=== PATIENT | female | born 1955 | race Caucasian/White ===

== ENCOUNTER 2020-04-15 09:21 | Inpatient (IN) ==
--- OUTSIDE RECORDS SUMMARY | 2020-04-15 09:24 | External Medical Summary | Continuity of Care Document ---
:1955 Author Name Vinicius Seay Address Unavailable Unavailable , Care Team Providers Name Role Phone Marlee Seay Unavailable [email or web address], [email or web address] Unavailable Unavailable Problems Active medical history not documented Allergies and Adverse Reactions Allergy history not documented Medications Medications not documented Procedures Procedures not documented Immunizations Immunizations not documented Plan of Treatment Planned Observations Planned Goals not documented Results No Known Results Results not documented
--- OUTSIDE RECORDS SUMMARY | 2020-04-15 09:24 | External Medical Summary | Continuity of Care Document ---
:1955 Author Name Vinicius Seay Address Unavailable Unavailable , Care Team Providers Name Role Phone Marlee Seay Unavailable [email or web address] [email or web address], UNKNOWN Unavailable Unavailable Problems Active medical history not documented Allergies and Adverse Reactions Allergy history not documented Medications Medications not documented Procedures Procedures not documented Immunizations Immunizations not documented Plan of Treatment Planned Observations Planned Goals not documented Results No Known Results Results not documented
[2020-04-15] MEDS ORDERED: MoRPHine SULFATE 4 MG/ML 1 ML CARP\\VIAL IV STA (09:45)
[2020-04-15] MEDS ORDERED: ONDANSETRON INJ 2 MG/ML 2 ML VIAL IV STA (09:45)
[2020-04-15] MEDS ORDERED: SODIUM CHLORIDE 0.9% 1000ML 1,000 ML IV ONE (09:45)
--- NOTE | 2020-04-15 09:50 | Emergency Department Note ---
Impression & Plan Acute appendicitis ED Provider Note CHIEF COMPLAINT: Abdominal pain, nausea and vomiting HISTORY OF PRESENTING ILLNESS: This is a 64-year-old female who presents to the emergency department by private vehicle with complaint of right lower abdominal pain. Patient states that she initially had abdominal pain about 6 days ago that lasted for 2 days, it was not this severe and it did seem to resolve. She did not have any other symptoms with the abdominal pain at that time. She states the pain was mostly in her upper abdomen initially, then seemed to move to her right lower abdomen. She states that her abdominal pain came back yesterday, it is in the right lower abdomen and is severe, crampy in nature, does not radiate, worse with any movement or being bumped, better with rest, and she currently rates the pain 8/10. She took Tylenol and ibuprofen yesterday, which did not seem to relieve any of her symptoms. She started having nausea and vomiting yesterday afternoon and has not been able to keep anything down since then. She has not had anything to eat or drink today. She denies any fevers or chills, chest pain, shortness of breath, back pain, dizziness or syncope. She denies any diarrhea, constipation, bloody or black stools, urinary complaints, or an unusual rash. Denies any sick contacts. REVIEW OF SYSTEMS: A complete 10 point review of systems was reviewed with the patient with pertinent positives and negatives as per history of present illness. All else were negative. PAST MEDICAL HISTORY: Asthma, hypothyroidism SOCIAL HISTORY: Lives at home, she is a former smoker ALLERGIES: No known allergies PHYSICAL EXAM: CONSTITUTIONAL: Pleasant and cooperative. Nontoxic-appearing and in no acute distress, but appears uncomfortable from pain. Dehydrated well appearing and well nourished. HEENT: Normocephalic, atraumatic. Pharynx normal. Tacky mucous membranes. NECK: Supple, full active range of motion without discomfort. RESPIRATORY: Clear to auscultation bilaterally with no wheezing, crackles, rhonchi or stridor. Equal expansion bilaterally. CARDIOVASCULAR: Tachycardic, regular rhythm with no murmurs, rubs or gallops. Normal peripheral perfusion, 2+ distal pulses in all 4 extremities. No pitting edema. GASTROINTESTINAL: Exquisitely tender in the right lower quadrant, positive rebound tenderness and positive guarding. Positive Rovsing and psoas signs. Tenderness extending up towards the right upper quadrant. The remainder of the abdomen is nontender, soft, and mildly distended. No palpable masses or HSM. Bowel sounds present in all quadrants. No CVA tenderness bilaterally. MUSCULOSKELETAL: Full range of motion of all joints without discomfort. INTEGUMENTARY: No rash or other significant dermatologic conditions noted. NEUROLOGIC: Alert and oriented X 4 with normal affect. Normal strength and sensation in all 4 extremities. Normal speech. Normal gait observed. ED COURSE AND MEDICAL DECISION MAKING: CC: Patient presenting with complaint of abdominal pain, nausea and vomiting DIFFERENTIAL DIAGNOSIS: Includes, but not limited to appendicitis, mesenteric adenitis, infectious colitis, gastroenteritis, diverticulitis, small bowel obstruction, cholecystitis, pancreatitis, abnormality, dehydration, among others. INTERPRETATION OF LABS: Leukocytosis with left shift, no anemia, normal platelets, no significant electrolyte abnormalities, normal renal function, normal liver enzymes and lipase. Lactate within normal limits. IMAGING: CT abd pelvis IV con only CT DOSE: 307.94 mGy.cm HISTORY: Pain. Nausea. RLQ pain, n/v TECHNIQUE: Multiaxial CT images of the abdomen and pelvis were performed following the use of intravenous contrast. A dose lowering technique was utilized adhering to the principles of ALARA. COMPARISON STUDY: None. FINDINGS: Findings consistent with acute appendicitis. The appendix is distended at 1 cm. There is considerable periappendiceal infiltrative change. There is a potential phlegmon or developing between the appendix as well as cecum/ascending colon measuring 4 x 5 cm. There is trace amount of free fluid within the right paracolic gutter as well as right central soft tissue pelvic cul-de-sac regions. Bladder is midline. There is no evidence for free air or obstructive change. Airforming components of the abdomen and pelvis are unremarkable. IMPRESSION: 1. Acute appendicitis.. 2. Considerable periappendiceal infiltrative change with a probable developing high density phlegmon measuring 4 x 5 cm. 3. A well-defined drainable abscess is not identified. MEDICATION RECONCILIATION: I attest that I have personally reviewed the patient's current medication list. INITIAL VITAL SIGNS REVIEW: I reviewed the patient's initial vital signs and interpret them as follows: T: Afebrile; BP: Hypertensive; HR: Tachycardic; RR: Within normal limits; Pulse Ox: Within normal limits on room air. Blood pressure screening: The patient was found to have an elevated blood pr essure, which was felt to be situational. MDM SUMMARY: Patient was evaluated at bedside, history and physical exam performed. Patient is alert and oriented, no acute distress, but appears uncomfortable from pain, resting in the stretcher. She is exquisitely tender in the right lower quadrant with positive rebound tenderness and guarding over the right lower quadrant. No acute abdomen. Clin ically appears consistent with appendicitis. Cardiac monitoring: An order was placed for continuous cardiac monitoring. The monitor shows a rate of 106 bpm with sinus tachycardia rhythm. Orders were placed at bedside for labs, [id number] BMP, lactate, IV fluid bolus for hydration, IV morphine for pain, IV Zofran for nausea, CT abdomen/pelvis with IV contrast to evaluate for abdominal pain. Patient discussed with Dr. Greenwood, who agrees with my assessment, plan, and disposition. Labs and imaging reviewed as above, notable for a leukocytosis. Lactate is within normal limits. CT findings consistent with acute appendicitis with considerable periappendiceal infiltrative change and probable developing phlegmon, but no identified drainable abscess. Given these findings along with a leukocytosis, I did opt to cover the patient with Zosyn. Spoke on the phone with Yumiko Arias PA-C with general surgery, who agrees to evaluate the patient for surgery. Patient reassessed multiple times throughout ED stay, she has remained hemodynamically stable and reports her pain is improved after the morphine. She was updated on all results and plan for surgery, all questions were answered to the best my ability at this time, she was comfortable with this plan. Dr. Becerra at the bedside to evaluate the patient for surgery. Patient was stable at time of admission for surgery. The chart was completed utilizing [employer] Speech voice recognition software. Grammatical errors, random word insertions, pronoun errors, and incomplete sentences are an occasional consequence of this system due to software limitations, ambient noise, and hardware issues. Any formal questions or concerns about the content, text, or information contained within the body of this dictation should be directly addressed to the nurse practitioner for clarification. Past Med/Surg History Medical History (Updated 04/15/20 @ 16:55 by MARV Lyons) Asthma (Chronic) COPD (chronic obstructive pulmonary disease) Hypothyroidism Surgical History (Updated 06/19/20 @ 11:37 by Regino Becerra MD) H/O section X 3 Social History (Updated 04/15/20 @ 11:38 by Regino Becerra MD) Preferred Language: Lebanese Feels Safe at Home: Yes Smoking Status: Former smoker Hx Alcohol Use: Yes (but not for the last 4 years) Allergies Allergies Allergy/AdvReac Type Severity Reaction Status Date / Time No Known Allergies Allergy Mild NONE Unverified 04/15/20 10:39 Home Meds Home Medications Medication Instructions Recorded Confirmed albuterol sulfate [Ventolin HFA] 2 puff INHALATION Q4H PRN 04/15/20 04/15/20 ascorbic acid (vitamin C) [Vitamin 1,000 mg PO QAM 04/15/20 04/15/20 C] fluticasone propion-salmeterol 1 inh INHALATION BID 04/15/20 04/15/20 [Wixela Inhub] gabapentin 300 mg PO HS 04/15/20 04/15/20 lactobacillus combination no.4 3,000 mmu cells PO QAM 04/15/20 04/15/20 [Probiotic] levothyroxine 50 mcg PO QAM 04/15/20 04/15/20 magnesium 250 mg PO QAM 04/15/20 04/15/20 omega 4-uit-upk-fish oil [[place]-3] 2 cap PO QAM 04/15/20 04/15/20 Results & Data (ED) Vital Signs Vital Signs - 24 hr 04/15/20 09:28 04/15/20 11:17 04/15/20 13:07 Temperature 37 C 36.9 C Temperature Source Oral Oral Pulse Rate 109 H 105 H Pulse Rate [Finger] 106 H Pulse Rhythm [Finger] Pulse Strength [Finger] Respiratory Rate 18 16 Respiratory Effort / Characteristics Non-Labored Spontaneous Respiratory Depth Normal Respiratory Pattern Regular Blood Pressure 168/87 H 127/75 Blood Pressure [Right Arm] 145/82 H Blood Pressure Mean 114 Blood Pressure Mean [Right Arm] 103 Blood Pressure Position Sitting Blood Pressure Position [Right Arm] Pulse Oximetry 96 97 93 Oxygen Delivery Method Room Air Room Air Room Air Sepsis Recent Fever Within 48 Hours No Sepsis New/Unexplained Change in Mental Status No Sepsis Action Taken by Nursing No Action Required 04/15/20 13:27 Temperature 36.6 C Temperature Source Oral Pulse Rate Pulse Rate [Finger] 98 H Pulse Rhythm [Finger] Regular Pulse Strength [Finger] Normal Respiratory Rate 20 Respiratory Effort / Characteristics Non-Labored Spontaneous Respiratory Depth Normal Respiratory Pattern Regular Blood Pressure Blood Pressure [Right Arm] 127/71 Blood Pressure Mean Blood Pressure Mean [Right Arm] 89 Blood Pressure Position Blood Pressure Position [Right Arm] Sitting Pulse Oximetry 93 Oxygen Delivery Method Room Air Sepsis Recent Fever Within 48 Hours Sepsis New/Unexplained Change in Mental Status Sepsis Action Taken by Nursing Laboratory Data Result diagrams: 04/15/20 09:49 04/15/20 09:49 Lab Results 04/15/20 04/15/20 04/15/20 Range/Units 09:49 09:49 09:49 WBC 19.59 H (4.8-10.8) K/uL RBC 4.78 (4.2-5.4) M/uL Hgb 14.5 (12.0-16.0) g/dL POC Hgb (12.0-16.0) g/dl Hct 42.5 (37-47) % POC Hct (37-47) % MCV 88.9 (80-100) fL MCH 30.3 (25-34) pg MCHC 34.1 (32-36) g/dL RDW Std Deviation 40.8 (36.4-46.3) fL RDW Coeff of Sharon 12.6 (11.5-14.5) % Plt Count 383 (130-400) K/uL MPV 8.9 (7.4-10.4) fL Immature Gran % (Auto) 0.3 % Neut % (Auto) 85.3 % Lymph % (Auto) 6.4 % [place] % (Auto) 7.9 % Eos % (Auto) 0.0 % Baso % (Auto) 0.1 % Immature Gran # (Auto) 0.05 H (0.00-0.02) K/uL Neut # (Auto) 16.72 H (1.4-6.5) K/uL Lymph # (Auto) 1.26 (1.2-3.4) K/uL [place] # (Auto) 1.54 H (0.11-0.59) K/uL Eos # (Auto) 0.00 (0-0.5) K/uL Baso # (Auto) 0.02 (0-0.2) K/uL POC Sodium (135-144) mmol/L Sodium 137 (136-145) mmol/L POC Potassium (3.3-5.0) mmol/L Potassium 4.0 (3.5-5.1) mmol/L POC Chloride (101-112) mmol/L Chloride 105 (98-107) mmol/L Carbon Dioxide 22 (21-32) mmol/L POC Total CO2 (24-31) mmol/L Anion Gap 10.0 (3-11) POC Anion Gap (16-25) mmol/L POC BUN (7-18) mg/dl BUN 17 (7-18) mg/dl Creatinine 0.75 (0.6-1.2) mg/dl POC Creatinine (0.6-1.3) mg/dl Est Cr Clr Drug Dosing 59.9 ml/min Est GFR ( Amer) 97.6 Est GFR (Non-Af Amer) 84.2 BUN/Creatinine Ratio 22.9 H (10-20) Glucose 124 H (70-99) mg/dl POC Glucose (other) (70-99) mg/dl Lactate 0.9 (0.4-2.0) mmol/L Calcium 9.3 (8.5-10.1) mg/dl POC Ioniz Calcium Renny (1.12-1.32) mmol/l Total Bilirubin 0.7 (0.2-1) mg/dl AST 11 L (15-37) U/L ALT 25 (12-78) U/L Alkaline Phosphatase 92 (45-117) U/L Total Protein 8.1 (6.4-8.2) gm/dl Albumin 3.7 (3.4-5.0) gm/dl Globulin 4.4 H (2.5-4.0) gm/dl Albumin/Globulin Ratio 0.8 L (0.9-2) Lipase 96 (73-393) U/L 04/15/20 Range/Units 09:58 WBC (4.8-10.8) K/uL RBC (4.2-5.4) M/uL Hgb (12.0-16.0) g/dL POC Hgb 15.3 (12.0-16.0) g/dl Hct (37-47) % POC Hct 45 (37-47) % MCV (80-100) fL MCH (25-34) pg MCHC (32-36) g/dL RDW Std Deviation (36.4-46.3) fL RDW Coeff of Sharon (11.5-14.5) % Plt Count (130-400) K/uL MPV (7.4-10.4) fL Immature Gran % (Auto) % Neut % (Auto) % Lymph % (Auto) % [place] % (Auto) % Eos % (Auto) % Baso % (Auto) % Immature Gran # (Auto) (0.00-0.02) K/uL Neut # (Auto) (1.4-6.5) K/uL Lymph # (Auto) (1.2-3.4) K/uL [place] # (Auto) (0.11-0.59) K/uL Eos # (Auto) (0-0.5) K/uL Baso # (Auto) (0-0.2) K/uL POC Sodium 136 (135-144) mmol/L Sodium (136-145) mmol/L POC Potassium 4.0 (3.3-5.0) mmol/L Potassium (3.5-5.1) mmol/L POC Chloride 103 (101-112) mmol/L Chloride (98-107) mmol/L Carbon Dioxide (21-32) mmol/L POC Total CO2 21 L (24-31) mmol/L Anion Gap (3-11) POC Anion Gap 17.0 (16-25) mmol/L POC BUN 17 (7-18) mg/dl BUN (7-18) mg/dl Creatinine (0.6-1.2) mg/dl POC Creatinine 0.6 (0.6-1.3) mg/dl Est Cr Clr Drug Dosing ml/min Est GFR ( Amer) Est GFR (Non-Af Amer) BUN/Creatinine Ratio (10-20) Glucose (70-99) mg/dl POC Glucose (other) 128 H (70-99) mg/dl Lactate (0.4-2.0) mmol/L Calcium (8.5-10.1) mg/dl POC Ioniz Calcium Renny 1.19 (1.12-1.32) mmol/l Total Bilirubin (0.2-1) mg/dl AST (15-37) U/L ALT (12-78) U/L Alkaline Phosphatase (45-117) U/L Total Protein (6.4-8.2) gm/dl Albumin (3.4-5.0) gm/dl Globulin (2.5-4.0) gm/dl Albumin/Globulin Ratio (0.9-2) Lipase (73-393) U/L Administered Medications Ioversol (Optiray 320 100ml) 94 ml IV ONCE PRN PRN Reason: Interaction Checking Stop: 04/19/20 10:22 Last Admin: 04/15/20 10:24 Dose: 94 ml Documented by: [id number] Discontinued Medications Sodium Chloride (Nss 1000ml) 1,000 mls @ 999 mls/hr IV .Q1H1M ONE Stop: 04/15/20 10:45 Last Infusion: 04/15/20 12:15 Dose: 0 mls/hr Documented by: [id number] Admin: 04/15/20 09:57 Dose: 999 mls/hr Documented by: [id number] Piperacillin Sod/Tazobactam Sod (Zosyn) 4.5 gm in 120 mls @ 240 mls/hr IV NOW ONE Stop: 04/15/20 11:17 Last Infusion: 04/15/20 12:16 Dose: 0 mls/hr Documented by: [id number] Admin: 04/15/20 11:33 Dose: 240 mls/hr Documented by: [id number] Morphine Sulfate (Morphine Sulfate) 4 mg IV NOW STA Stop: 04/15/20 09:46 Last Admin: 04/15/20 09:57 Dose: 4 mg Documented by: [id number] Ondansetron HCl (Zofran) 4 mg IV PRN STA Stop: 04/15/20 09:46 Last Admin: 04/15/20 09:57 Dose: 4 mg Documented by: [id number] Discharge Plan Visit Data Chief Complaint: Abdominal Pain Stated Complaint: SEVERE ABD PAIN FOR A COUPLE DAYS, VOMITING BILE ED Provider: Patricio Greenwood ED Midlevel Provider: Rosalva Leija Discharge Problem: Acute appendicitis Patient Disposition: Being Evaluated by Surgeon Discharge Instructions Interventions: ED Discharge Assessment Last Done: 04/15/20 13:07 Forms Stand Alone Forms: [facility] Card Management AS Prescriptions Prescriptions: No Action fluticasone propion-salmeterol [Wixela Inhub] 250-50 mcg/dose blister with device 1 inh INHALATION BID RF: 0 ascorbic acid (vitamin C) [Vitamin C] 1,000 mg Tablet 1,000 mg PO QAM RF: 0 levothyroxine 50 mcg tablet 50 mcg PO QAM RF: 0 gabapentin 300 mg capsule 300 mg PO HS RF: 0 magnesium 250 mg Tablet 250 mg PO QAM RF: 0 albuterol sulfate [Ventolin HFA] 90 mcg/actuation HFA aerosol inhaler 2 puff INHALATION Q4H PRN (Reason: Wheezing) RF: 0 Probiotic 3 billion cell Capsule 3,000 mmu cells PO QAM RF: 0 [place]-3 350 mg-235 mg- 90 mg-597 mg Capsule,Delayed Release(Dr/Ec) 2 cap PO QAM RF: 0 Referrals Referrals: Markus Matthews DO [Primary Care Provider] - Discharge Problem: Acute appendicitis Qualifiers: Acute appendicitis type: with localized peritonitis Appendicitis gangrene presence: unspecified whether gangrene present Appendicitis perforation presence: unspecified whether perforation present Appendicitis abscess presence: unspecified whether abscess present Qualified Code(s): K35.30 - Acute appendicitis with localized peritonitis, without perforation or gangrene
[2020-04-15 10:04] LABS: Basophils # (auto) 0.02 K/uL (0-0.2); Basophils % (auto) 0.1 %; Hematocrit (blood only) 42.5 % (37-47); Hemoglobin 14.5 g/dL (12.0-16.0); Immature Granulocytes # (auto) 0.05 K/uL (0.00-0.02); Immature Granulocytes % (auto) 0.3 %; Lymphocytes # (auto) 1.26 K/uL (1.2-3.4); Lymphocytes % (auto) 6.4 %; Mean Corpuscular Hemoglobin 30.3 pg (25-34); Mean Corpuscular Hgb Conc 34.1 g/dL (32-36); Mean Corpuscular Volume 88.9 fL (80-100); Mean Platelet Volume 8.9 fL (7.4-10.4); Monocytes # (auto) 1.54 K/uL (0.11-0.59); Monocytes % (auto) 7.9 %; Neutrophils # (auto) 16.72 K/uL (1.4-6.5); Neutrophils % (auto) 85.3 %; Platelet Count 383 K/uL (130-400); RDW Coefficient of Variation 12.6 % (11.5-14.5); RDW Standard Deviation 40.8 fL (36.4-46.3); Red Blood Count 4.78 M/uL (4.2-5.4); White Blood Count 19.59 K/uL (4.8-10.8)
[2020-04-15 10:11] LABS: iSTAT Creatinine 0.6 mg/dl (0.6-1.3); iSTAT Hemoglobin 15.3 g/dl (12.0-16.0); iSTAT Ionized Calcium 1.19 mmol/l (1.12-1.32)
[2020-04-15 10:22] LABS: Albumin Level 3.7 gm/dl (3.4-5.0); BUN Creatinine Ratio 22.9 (10-20); Calcium 9.3 mg/dl (8.5-10.1); Creatinine Clr Calc Pharmacy 59.9 ml/min; Est GFR (African American) 97.6; Est GFR (Non-African American) 84.2
[2020-04-15] MEDS ORDERED: IOVERSOL 100ml IV PRN (10:23)
[2020-04-15 10:24] LABS: Albumin Globulin Ratio 0.8 (0.9-2); Bilirubin,Total 0.7 mg/dl (0.2-1); Globulin 4.4 gm/dl (2.5-4.0); Total Protein 8.1 gm/dl (6.4-8.2)
--- NOTE | 2020-04-15 10:41 | CT Scan Report ---
CT abd pelvis IV con only CT DOSE: 307.94 mGy.cm HISTORY: Pain. Nausea. RLQ pain, n/v TECHNIQUE: Multiaxial CT images of the abdomen and pelvis were performed following the use of intrave nous contrast. A dose lowering technique was utilized adhering to the principles of ALARA. COMPARISON STUDY: None. FINDINGS: Findings consistent with acute appendicitis. The appendix is distended at 1 cm. There is co nsiderable periappendiceal infiltrative change. There is a potential phlegmon or developing between t he appendix as well as cecum/ascending colon measuring 4 x 5 cm. There is trace amount of free fluid within the right paracolic gutter as well as right central soft t issue pelvic cul-de-sac regions. Bladder is midline. There is no evidence for free air or obstructive change. Airforming components of the abdomen and pel vis are unremarkable. IMPRESSION: 1. Acute appendicitis.. 2. Considerable periappendiceal infiltrative change with a probable developing high density phlegmon measuring 4 x 5 cm. 3. A well-defined drainable abscess is not identified. ACT 112: Negative or not required by law. The above report was generated using voice recognition software. It may contain grammatical, syntax or spelling errors. Electronically signed by: Regino Estrella M.D. 04/15/2020 10:40 AM
[2020-04-15] MEDS ORDERED: PIPERACILLIN/TAZOBACTAM 4.5 GM/120 ML BAG IV ONE (10:48)
[2020-04-15] MEDS ORDERED: PIPERACILL/TAZOBAC CONSULT ACTIVE PRN (10:48)
--- NOTE | 2020-04-15 11:39 | History & Physical Report ---
Date of Service April 15, 2020 Assessment & Plan Admission and Anticipated Discharge Date Admission Date: This patient has right lower quadrant pain and tenderness and a CT scan indicative of acute appendicitis. I reviewed the images as well as the report. I recommended a laparoscopic appendectomy. I explained the possible complications. I explained the possible need to convert to an open procedure. I answered her questions. She has signed a consent form. History of Present Illness Chief Complaint: Right lower quadrant pain Primary Care Provider: Markus Matthews DO This is a 64-year-old female who presented to the emergency room with a complaint of abdominal pain that is now in the right lower quadrant. It began 6 days ago. It began generally on the right side. It was a dull ache. It would come and go and at one point resolved however it returned and yesterday became very sharp. It was then localized to the right lower quadrant. Yesterday she developed nausea and had an episode of vomiting. She has not had fever. She has not had a change in her bowel habits. There is no melena or hematochezia. She denies dysuria and hematuria. The pain is exacerbated by motion. She has never had pain like this before. Allergies Allergy/AdvReac Type Severity Reaction Status Date / Time No Known Allergies Allergy Mild NONE Unverified 04/15/20 10:39 Home Medications Home Medications Medication Instructions Recorded Confirmed Type albuterol sulfate [Ventolin HFA] 2 puff INHALATION Q4H PRN 04/15/20 04/15/20 History ascorbic acid (vitamin C) [Vitamin 1,000 mg PO QAM 04/15/20 04/15/20 History C] fluticasone propion-salmeterol 1 inh INHALATION BID 04/15/20 04/15/20 History [Wixela Inhub] gabapentin 300 mg PO HS 04/15/20 04/15/20 History lactobacillus combination no.4 3,000 mmu cells PO QAM 04/15/20 04/15/20 History [Probiotic] levothyroxine 50 mcg PO QAM 04/15/20 04/15/20 History magnesium 250 mg PO QAM 04/15/20 04/15/20 History omega 8-sow-hsj-fish oil [[place]-3] 2 cap PO QAM 04/15/20 04/15/20 History Past Med/Surg History Medical History (Updated 04/15/20 @ 11:37 by Regino Becerra MD) Asthma (Chronic) COPD (chronic obstructive pulmonary disease) Hypothyroidism Surgical History (Updated 04/15/20 @ 11:37 by Regino Becerra MD) H/O section X 3 Social History (Updated 04/15/20 @ 11:38 by Regino Becerra MD) Preferred Language: Togolese Feels Safe at Home: Yes Smoking Status: Former smoker Hx Alcohol Use: Yes (but not for the last 4 years) Review of Systems Review of Systems: All systems reviewed & are unremarkable except as noted in HPI & below Physical Exam Constitutional: no acute distress Neck: trachea midline Respiratory: normal respiratory effort, lungs clear to auscultation Cardiovascular: Rate/Rhythm: regular rate and regular rhythm Gastrointestinal (Abdomen): Inspection/Auscultation: abdomen not distended Percussion/Palpation: + abdomen tender (To minimal palpation of the right lower quadrant) Skin: no rashes, warm and dry Lymphatic: no cervical lymphadenopathy Results & Data Results [facility] Vital Signs (Past 12 Hours) Vital Signs Temp Pulse Pulse Resp BP BP Pulse Ox 04/15/20 11:17 106 H 145/82 H 97 04/15/20 09:28 37 C 109 H 18 168/87 H 96 Laboratory Results 04/15/20 04/15/20 04/15/20 Range/Units 09:58 09:49 09:49 WBC (4.8-10.8) K/uL RBC (4.2-5.4) M/uL Hgb (12.0-16.0) g/dL POC Hgb 15.3 (12.0-16.0) g/dl Hct (37-47) % POC Hct 45 (37-47) % MCV (80-100) fL MCH (25-34) pg MCHC (32-36) g/dL RDW Std Deviation (36.4-46.3) fL RDW Coeff of Sharon (11.5-14.5) % Plt Count (130-400) K/uL MPV (7.4-10.4) fL Immature Gran % (Auto) % Neut % (Auto) % Lymph % (Auto) % [place] % (Auto) % Eos % (Auto) % Baso % (Auto) % Immature Gran # (Auto) (0.00-0.02) K/uL Neut # (Auto) (1.4-6.5) K/uL Lymph # (Auto) (1.2-3.4) K/uL [place] # (Auto) (0.11-0.59) K/uL Eos # (Auto) (0-0.5) K/uL Baso # (Auto) (0-0.2) K/uL POC Sodium 136 (135-144) mmol/L Sodium 137 (136-145) mmol/L POC Potassium 4.0 (3.3-5.0) mmol/L Potassium 4.0 (3.5-5.1) mmol/L POC Chloride 103 (101-112) mmol/L Chloride 105 (98-107) mmol/L Carbon Dioxide 22 (21-32) mmol/L POC Total CO2 21 L (24-31) mmol/L Anion Gap 10.0 (3-11) POC Anion Gap 17.0 (16-25) mmol/L POC BUN 17 (7-18) mg/dl BUN 17 (7-18) mg/dl Creatinine 0.75 (0.6-1.2) mg/dl POC Creatinine 0.6 (0.6-1.3) mg/dl Est Cr Clr Drug Dosing 59.9 ml/min Est GFR ( Amer) 97.6 Est GFR (Non-Af Amer) 84.2 BUN/Creatinine Ratio 22.9 H (10-20) Glucose 124 H (70-99) mg/dl POC Glucose (other) 128 H (70-99) mg/dl Lactate 0.9 (0.4-2.0) mmol/L Calcium 9.3 (8.5-10.1) mg/dl POC Ioniz Calcium Renny 1.19 (1.12-1.32) mmol/l Total Bilirubin 0.7 (0.2-1) mg/dl AST 11 L (15-37) U/L ALT 25 (12-78) U/L Alkaline Phosphatase 92 (45-117) U/L Total Protein 8.1 (6.4-8.2) gm/dl Albumin 3.7 (3.4-5.0) gm/dl Globulin 4.4 H (2.5-4.0) gm/dl Albumin/Globulin Ratio 0.8 L (0.9-2) Lipase 96 (73-393) U/L 04/15/20 Range/Units 09:49 WBC 19.59 H (4.8-10.8) K/uL RBC 4.78 (4.2-5.4) M/uL Hgb 14.5 (12.0-16.0) g/dL POC Hgb (12.0-16.0) g/dl Hct 42.5 (37-47) % POC Hct (37-47) % MCV 88.9 (80-100) fL MCH 30.3 (25-34) pg MCHC 34.1 (32-36) g/dL RDW Std Deviation 40.8 (36.4-46.3) fL RDW Coeff of Sharon 12.6 (11.5-14.5) % Plt Count 383 (130-400) K/uL MPV 8.9 (7.4-10.4) fL Immature Gran % (Auto) 0.3 % Neut % (Auto) 85.3 % Lymph % (Auto) 6.4 % [place] % (Auto) 7.9 % Eos % (Auto) 0.0 % Baso % (Auto) 0.1 % Immature Gran # (Auto) 0.05 H (0.00-0.02) K/uL Neut # (Auto) 16.72 H (1.4-6.5) K/uL Lymph # (Auto) 1.26 (1.2-3.4) K/uL [place] # (Auto) 1.54 H (0.11-0.59) K/uL Eos # (Auto) 0.00 (0-0.5) K/uL Baso # (Auto) 0.02 (0-0.2) K/uL POC Sodium (135-144) mmol/L Sodium (136-145) mmol/L POC Potassium (3.3-5.0) mmol/L Potassium (3.5-5.1) mmol/L POC Chloride (101-112) mmol/L Chloride (98-107) mmol/L Carbon Dioxide (21-32) mmol/L POC Total CO2 (24-31) mmol/L Anion Gap (3-11) POC Anion Gap (16-25) mmol/L POC BUN (7-18) mg/dl BUN (7-18) mg/dl Creatinine (0.6-1.2) mg/dl POC Creatinine (0.6-1.3) mg/dl Est Cr Clr Drug Dosing ml/min Est GFR ( Amer) Est GFR (Non-Af Amer) BUN/Creatinine Ratio (10-20) Glucose (70-99) mg/dl POC Glucose (other) (70-99) mg/dl Lactate (0.4-2.0) mmol/L Calcium (8.5-10.1) mg/dl POC Ioniz Calcium Renny (1.12-1.32) mmol/l Total Bilirubin (0.2-1) mg/dl AST (15-37) U/L ALT (12-78) U/L Alkaline Phosphatase (45-117) U/L Total Protein (6.4-8.2) gm/dl Albumin (3.4-5.0) gm/dl Globulin (2.5-4.0) gm/dl Albumin/Globulin Ratio (0.9-2) Lipase (73-393) U/L Diagnostic Findings CT abd pelvis IV con only CT DOSE: 307.94 mGy.cm HISTORY: Pain. Nausea. RLQ pain, n/v TECHNIQUE: Multiaxial CT images of the abdomen and pelvis were performed following the use of intravenous contrast. A dose lowering technique was utilized adhering to the principles of ALARA. COMPARISON STUDY: None. FINDINGS: Findings consistent with acute appendicitis. The appendix is distended at 1 cm. There is considerable periappendiceal infiltrative change. There is a potential phlegmon or developing between the appendix as well as cecum/ascending colon measuring 4 x 5 cm. There is trace amount of free fluid within the right paracolic gutter as well as right central soft tissue pelvic cul-de-sac regions. Bladder is midline. There is no evidence for free air or obstructive change. Airforming components of the abdomen and pelvis are unremarkable. IMPRESSION: 1. Acute appendicitis.. 2. Considerable periappendiceal infiltrative change with a probable developing high density phlegmon measuring 4 x 5 cm. 3. A well-defined drainable abscess is not identified
[2020-04-15] MEDS ORDERED: PROPOFOL IV EMULSION 10 MG/ML 20 ML VIAL IV ONE (13:07)
[2020-04-15] MEDS ORDERED: ONDANSETRON INJ 2 MG/ML 2 ML VIAL ONE ×2 (13:07→21:17)
[2020-04-15] MEDS ORDERED: ROCURONIUM BROMIDE 10 MG/ML 5 ML VIAL IV ONE (13:07)
[2020-04-15] MEDS ORDERED: LIDOCAINE HCL 2% 2 ML VIAL/AMP(20MG/ML) INFIL ONE (13:07)
[2020-04-15] MEDS ORDERED: MIDAZOLAM HCL 1 MG/ML 2ML VIAL ONE (13:08)
[2020-04-15] MEDS ORDERED: fentaNYL citrate 100 MCG/2 ML VIAL ONE ×3 (13:08→23:55)
[2020-04-15] MEDS ORDERED: PHENYLEPHRINE 100MCG/ML 5ML SYR IV PRN (17:53)
[2020-04-15] MEDS ORDERED: MEPERIDINE HCL 25 MG/ML CARP/VIAL IV PRN (17:53)
[2020-04-15] MEDS ORDERED: LABETALOL HCL IV 5 MG/ML 20ML IV PRN (17:53)
[2020-04-15] MEDS ORDERED: ATROPINE SULFATE 0.1 MG/ML 10ML SYR IV PRN (17:53)
[2020-04-15] MEDS ORDERED: ONDANSETRON INJ 2 MG/ML 2 ML VIAL IV PRN (17:53)
[2020-04-15] MEDS ORDERED: ePHEDrine sulfate 50 MG/ML AMP IV PRN (17:53)
--- NOTE | 2020-04-15 18:09 | Anesthesiology Consultation ---
Date of Service April 15, 2020 Patient has not had recent Covid 19 testing. She has had no known exposure to Covid 19. Assessment & Plan (1) Encounter for pre-operative examination: Chart Review Chart Review: Acceptable Risk for Surgery (necessary surgery) and Patient NOT se en in Pre Admission Testing Consults Requested none History Surgery Operation Date: 04/15/20 15:20 Proposed Procedures p Laparoscopic Appendectomy - Regino Becerra MD Height/Weight Height: 5 ft 2 in Weight: 56.2 kg Allergies Allergy/AdvReac Type Severity Reaction Status Date / Time No Known Allergies Allergy Mild NONE Unverified 04/15/20 10:39 Medications Home Medications Medication Instructions Recorded Confirmed Last Taken albuterol sulfate [Ventolin HFA] 2 puff INHALATION Q4H PRN 04/15/20 04/15/20 Unknown ascorbic acid (vitamin C) [Vitamin 1,000 mg PO QAM 04/15/20 04/15/20 04/13/20 C] fluticasone propion-salmeterol 1 inh INHALATION BID 04/15/20 04/15/20 Unknown [Wixela Inhub] gabapentin 300 mg PO HS 04/15/20 04/15/20 04/13/20 lactobacillus combination no.4 3,000 mmu cells PO QAM 04/15/20 04/15/20 04/13/20 [Probiotic] levothyroxine 50 mcg PO QAM 04/15/20 04/15/20 04/13/20 magnesium 250 mg PO QAM 04/15/20 04/15/20 04/13/20 omega 4-xri-jdr-fish oil [[place]-3] 2 cap PO QAM 04/15/20 04/15/20 04/13/20 Active Medications Generic Name Dose Route Start Last Admin Trade Name Freq PRN Reason Stop Dose Admin Ioversol 94 ml 04/15/20 10:23 04/15/20 10:24 Optiray 320 100ml IV 04/19/20 10:22 94 ml ONCE PRN Administration Interaction Checking NPO Date Last Intake of Fluids: 04/14/20 Time Last Intake of Fluids: 13:00 Date Last Intake of Solids: 04/14/20 Time Last Intake of Solids: 13:00 Past Medical History Medical History Asthma (Chronic) COPD (chronic obstructive pulmonary disease) Hypothyroidism Past Surgical History Surgical History H/O section X 3 Social History Smoking Status: Former smoker Hx Alcohol Use: Yes (but not for the last 4 years) Physical Exam Vital Signs Last Vital Signs Temp 36.6 C 04/15/20 13:27 Pulse 98 H 04/15/20 13:27 Resp 20 04/15/20 13:27 BP 127/71 04/15/20 13:27 Pulse Ox 93 04/15/20 13:27 Testing Laboratory Results 04/15/20 09:49 04/15/20 09:49 04/15/20 09:58 POC Glucose (other) 128 H Electrocardiogram Date: 04/15/20 Findings: + NSST changes and + ST @ (106) Other Testing CT abd pelvis IV con only CT DOSE: 307.94 mGy.cm HISTORY: Pain. Nausea. RLQ pain, n/v TECHNIQUE: Multiaxial CT images of the abdomen and pelvis were performed following the use of intravenous contrast. A dose lowering technique was utilized adhering to the principles of ALARA. COMPARISON STUDY: None. FINDINGS: Findings consistent with acute appendicitis. The appendix is distended at 1 cm. There is considerable periappendiceal infiltrative change. There is a potential phlegmon or developing between the appendix as well as cecum/ascending colon measuring 4 x 5 cm. There is trace amount of free fluid within the right paracolic gutter as well as right central soft tissue pelvic cul-de-sac regions. Bladder is midline. There is no evidence for free air or obstructive change. Airforming components of the abdomen and pelvis are unremarkable. IMPRESSION: 1. Acute appendicitis.. 2. Considerable periappendiceal infiltrative change with a probable developing high density phlegmon measuring 4 x 5 cm. 3. A well-defined drainable abscess is not identified. ACT 112: Negative or not required by law. The above report was generated using voice recognition software. It may contain grammatical, syntax or spelling errors. Electronically signed by: Regino Estrella M.D. 04/15/2020 10:40 AM Dictated: 04/15/20 1030 Transcribed: 04/15/20 1030
[2020-04-15] MEDS ORDERED: GLYCOPYRROLATE 0.2 MG/ML VIAL ONE (19:01)
[2020-04-15] MEDS ORDERED: NEOSTIGMINE METHYLSULFATE 5 MG/5 ML SYR ONE (20:40)
[2020-04-15] MEDS ORDERED: BUPIVACAINE 0.5 % 5 MG/1 ML MPF 30ML VIAL ONE (20:51)
[2020-04-15] MEDS ORDERED: HEPARIN (PORCINE) 1000 UNIT/ML 10 ML (CATH LAB USE ONLY) ONE (20:51)
[2020-04-15] MEDS ORDERED: CEFAZOLIN 250 MG/ML 1 GM VIAL ONE (20:51)
[2020-04-15] MEDS ORDERED: cefOXitin 2,000 MG in DEXTROSE 5% 50 ML IV STA (21:15)
[2020-04-15] MEDS ORDERED: PHENYLEPHRINE 100MCG/ML 5ML SYR ONE (21:24)
[2020-04-15] MEDS ORDERED: ESMOLOL HCL INJ 10 MG/ML 10ML VIAL IV ONE (22:41)
--- NOTE | 2020-04-16 00:20 | Post Operative Brief Note ---
Immediate Post Op Note v1 Date of Surgery April 16, 2020 Pre & Post Diagnosis Operation Date: 04/15/20 15:20 Pre-Op Diagnosis: Acute appendicitis Post-Op Diagnosis: Acute perforated appendicitis,phlegmon of cecum I identified the patient and participated in the time-out.: Yes Procedure Operation Date: 04/15/20 15:20 Actual Procedures p Laparoscopic, converted to open, Appendectomy and bowel resection(Not Applicable) - Reigno Becerra MD Surgeon Regino Becerra MD Fairing Man None Estimated Blood Loss 30 Findings Consistent with Post-Op Diagnosis Drains Meraz Catheter (16fr meraz catheter placed at beginning of procedure without difficulty, meraz demonstrates clear yellow urine. Output measured and recorded by anesthesia.), Joseluis-Saleh Drain (10mm flat) and Sarah Drain (1/4)
[2020-04-16] MEDS ORDERED: fentaNYL citrate 100 MCG/2 ML VIAL ONE (01:00)
[2020-04-16] MEDS ORDERED: ONDANSETRON INJ 2 MG/ML 2 ML VIAL ONE (01:01)
[2020-04-16] MEDS: fentaNYL citrate 100 MCG/2 ML VIAL IV PRN ×3 (01:01→01:40)
[2020-04-16] MEDS ORDERED: METOPROLOL TARTRATE 1 MG/ML VIAL IV STA (01:25)
--- NOTE | 2020-04-16 01:27 | Anesthesiology Progress Note ---
Date of Service April 16, 2020 Anesthesia Post Procedure Vital Signs Vital Signs: Temp Pulse Pulse Pulse Resp BP BP 04/16/20 01:15 104 H 16 167/103 H 04/16/20 01:05 104 H 18 172/103 H 04/16/20 00:55 105 H 14 174/98 H 04/16/20 00:46 37 C 107 H 12 121/79 04/15/20 13:27 36.6 C 98 H 20 127/71 04/15/20 13:07 36.9 C 105 H 16 127/75 04/15/20 11:17 106 H 145/82 H 04/15/20 09:28 37 C 109 H 18 168/87 H Pulse Ox 04/16/20 01:15 96 04/16/20 01:05 96 04/16/20 00:55 99 04/16/20 00:46 100 04/15/20 13:27 93 04/15/20 13:07 93 04/15/20 11:17 97 04/15/20 09:28 96 Pain Intensity Abdomen: Pain Intensity: 3 Transfer of Care Handoff Completed per policy Notes Mental Status: alert / awake / arousable Patient Amnestic to Procedure: Yes Nausea / Vomiting: adequately controlled Pain: adequately controlled Airway Patency, RR, SpO2: stable & adequate BP & HR: stable & adequate Hydration State: stable & adequate Anesthetic Complications: no major complications apparent and Pt Satisfied with anesthetic care Notes: The patient is awake and stable. Her elevated BP and HR are similar to her previous vital signs. Her pain is being treated with fentanyl and she will receive a dose of metoprolol.
[2020-04-16] MEDS ORDERED: LABETALOL HCL IV 5 MG/ML 20ML IV ONE (01:28)
[2020-04-16] MEDS ORDERED: METOPROLOL TARTRATE 1 MG/ML VIAL IV ONE ×2 (01:32)
[2020-04-16] MEDS ORDERED: HYDROmorphone INJ 1 MG/ML SYRINGE ONE (01:50)
[2020-04-16] MEDS: HYDROmorphone INJ 1 MG/ML SYRINGE IV PRN ×3 (01:52→02:18)
[2020-04-16] MEDS ORDERED: PROMETHAZINE HCL 12.5 MG in SODIUM CHLORIDE 0.9% 50 ML IV STA (02:00)
[2020-04-16] MEDS ORDERED: PIPERACILL/TAZOBAC CONSULT ACTIVE PRN (03:35)
[2020-04-16] MEDS ORDERED: D5W AND 1/2NSS + 20MEQ KCL 20 MEQ/1,000 ML BAG IV SCH (04:30)
[2020-04-16] MEDS: MoRPHine SULFATE 4 MG/ML 1 ML CARP\\VIAL IV PRN ×3 (04:44→18:16)
[2020-04-16] MEDS ORDERED: SODIUM CHLORIDE 0.9% 1000ML 1,000 ML IV SCH (04:45)
[2020-04-16] MEDS: PIPERACILLIN/TAZOBACTAM 3.375 GM in DEXTROSE 5% 100 ML IV SCH ×3 (05:02→20:27)
[2020-04-16] MEDS ORDERED: cloNIDine HCL 0.1 MG TAB PO ONE ×2 (05:07→06:31)
[2020-04-16] MEDS ORDERED: INFLUENZA VIRUS QUAD VACCINE 0.5 ML SYR IM ONE (05:28)
[2020-04-16] MEDS ORDERED: INFLUENZA ADMINISTRATION CHARGE ONE (05:28)
[2020-04-16] MEDS: OXYCODONE/ACETAMINOPHEN 5mg/325mg TAB PO PRN ×4 (05:29→21:11)
--- NOTE | 2020-04-16 05:34 | Hospitalist Consultation ---
Date of Consultation April 16, 2020 Assessment & Plan (1) Acute appendicitis: Final Assessment and Recommendations as follows : Complicated appendicitis status post surgery Possible sepsis Hypertensive urgency, tachycardia secondary to postop pain, anxiety Probable chronic hypertension given borderline concentric LVH on outpatient stress echo April 2015. hx COPD, pulmonary status at baseline hypothyroidism, no recent outpatient TSH Hyperglycemia secondary to prediabetes past tobacco abuse Agree with Zosyn Analgesia Consider Dilaudid in place of Morphine if latter medication still ineffective for patient's discomfort. Anxiolytic as needed No NSAIDs please given uncontrolled blood pressure. Initiate lisinopril. Update TSH, hemoglobin A1c DVT prophylaxis. SCDs as per postop orders. Recommend pharmacologic anticoagulation once bleeding risk is deemed to be minimal and negligible pending Surgery postop eval. Thank you very much for this consultation. Dr. Beckford will follow patient's progress. Text document was generated using [employer] voice recognition software. It may contain grammatical or spelling errors. Kindly contact undersigned for clarification of any documentation item in question. History of Present Illness Reason for Consultation: Elevated BP, heart rate Requesting Physician: Dr. Becerra Attending Physician: Regino Becerra MD History of Present Illness PCP : Dr. Markus Matthews History obtained from patient and records. Medical history significant for COPD, hypothyroidism, prediabetes, past tobacco abuse. Last confinement 2012 for COPD exacerbation. 1 week history of achy right lower quadrant pain without fever and chills. Patient seen at the ER yesterday. CT abdomen pelvis showed acute appendicitis with probable developing high density phlegmon measuring 4 x 5 cm. Patient found to have perforated appendicitis and cecal phlegmon intraoperatively. Patient underwent open appendectomy and bowel resection. Postop patient blood pressure 1 60-170s, CR 105. Complaining of achy postop abdominal pain. No chest pain, no S OB, no headache. Medical History as above Surgical History : Appendectomy, section, breast biopsy Family History : Alcoholism, diabetes, heart disease Personal/Social history : Past tobacco abuse, occasional EtOH intake, [employer] employee Allergies Allergy/AdvReac Type Severity Reaction Status Date / Time No Known Allergies Allergy Mild NONE Unverified 04/15/20 10:39 Home Medications Home Medications Medication Instructions Recorded Confirmed Type albuterol sulfate [Ventolin HFA] 2 puff INHALATION Q4H PRN 04/15/20 04/15/20 History ascorbic acid (vitamin C) [Vitamin 1,000 mg PO QAM 04/15/20 04/15/20 History C] fluticasone propion-salmeterol 1 inh INHALATION BID 04/15/20 04/15/20 History [Wixela Inhub] gabapentin 300 mg PO HS 04/15/20 04/15/20 History lactobacillus combination no.4 3,000 mmu cells PO QAM 04/15/20 04/15/20 History [Probiotic] levothyroxine 50 mcg PO QAM 04/15/20 04/15/20 History magnesium 250 mg PO QAM 04/15/20 04/15/20 History omega 7-wld-tnp-fish oil [[place]-3] 2 cap PO QAM 04/15/20 04/15/20 History Patient History Medical History Asthma (Chronic) COPD (chronic obstructive pulmonary disease) Hypothyroidism Surgical History H/O section X 3 Social History (Updated 04/15/20 @ 11:38 by Regino Becerra MD) Preferred Language: Tristanian Communication Ability: Effective Beliefs That Will Affect Care: None Current Living Situation: Parent Other Information That Helps Us Care for You: No Feels Safe at Home: Yes Safety Concerns: Feels Safe At This Time Smoking Status: Former smoker Tobacco Type: cigarettes ; Do You Dip or Chew Tobacco: No ; Second Hand Exposure: No ; Tobacco Cessation Education Requested by Patient: No Hx Alcohol Use: No Hx Substance Use: No Review of Systems Review of Systems: As per HPI, all 10 systems reviewed, all other ROS negative Physical Exam Physical Exam: GENERAL: Slightly uncomfortable, no respiratory distress SKIN: Normal color, warm HEENT: [place] palpebral conjunctivae, no ptosis, dry buccal mucosa NECK : Supple, no tenderness CHEST : Decreased breath sounds, no tenderness HEART : Tachycardic, no obvious murmurs ABDOMEN: Some distention, hypogastric tenderness EXTREMITIES : No LE swelling/tenderness, no other conspicuous deformities noted NEUROLOGIC : Coherent, no facial asymmetry, no other gross focality Results & Data Results & Data ([facility]) Vital Signs (Past 12 Hours) Vital Signs Temp Pulse Pulse Pulse Resp BP BP 04/16/20 05:31 36.8 C 104 H 16 158/77 H 04/16/20 05:07 98 H 154/88 H 04/16/20 04:30 37.3 C 105 H 16 175/102 H 04/16/20 04:02 37.5 C 100 H 16 179/98 H 04/16/20 03:10 98 H 18 04/16/20 02:55 37.2 C 95 H 14 04/16/20 02:45 95 H 14 04/16/20 02:35 37.2 C 88 12 04/16/20 02:25 91 H 14 04/16/20 02:15 88 14 04/16/20 02:05 87 14 04/16/20 01:55 87 16 04/16/20 01:45 90 14 04/16/20 01:40 93 H 16 04/16/20 01:35 102 H 18 04/16/20 01:34 106 H 167/100 H 04/16/20 01:25 105 H 16 04/16/20 01:15 104 H 16 04/16/20 01:05 104 H 18 04/16/20 00:55 105 H 14 04/16/20 00:46 37 C 107 H 12 BP Pulse Ox 04/16/20 05:31 98 04/16/20 05:07 04/16/20 04:30 96 04/16/20 04:02 96 04/16/20 03:10 150/96 H 97 04/16/20 02:55 140/93 98 04/16/20 02:45 160/97 H 96 04/16/20 02:35 151/91 H 98 04/16/20 02:25 150/86 H 97 04/16/20 02:15 146/91 H 97 04/16/20 02:05 143/93 H 97 04/16/20 01:55 140/101 H 96 04/16/20 01:45 149/97 H 97 04/16/20 01:40 160/105 H 97 04/16/20 01:35 167/100 H 97 04/16/20 01:34 04/16/20 01:25 167/99 H 97 04/16/20 01:15 167/103 H 96 04/16/20 01:05 172/103 H 96 04/16/20 00:55 174/98 H 99 04/16/20 00:46 121/79 100 Laboratory Results Laboratory Results WBC 19.59 K/uL (4.8-10.8) H 04/15/20 09:49 RBC 4.78 M/uL (4.2-5.4) 04/15/20 09:49 Hgb 14.5 g/dL (12.0-16.0) 04/15/20 09:49 POC Hgb 15.3 g/dl (12.0-16.0) 04/15/20 09:58 Hct 42.5 % (37-47) 04/15/20 09:49 POC Hct 45 % (37-47) 04/15/20 09:58 MCV 88.9 fL (80-100) 04/15/20 09:49 MCH 30.3 pg (25-34) 04/15/20 09:49 MCHC 34.1 g/dL (32-36) 04/15/20 09:49 RDW Std Deviation 40.8 fL (36.4-46.3) 04/15/20 09:49 RDW Coeff of [place] 12.6 % (11.5-14.5) 04/15/20 09:49 Plt Count 383 K/uL (130-400) 04/15/20 09:49 MPV 8.9 fL (7.4-10.4) 04/15/20 09:49 Immature Gran % (Auto) 0.3 % 04/15/20 09:49 Neut % (Auto) 85.3 % 04/15/20 09:49 Lymph % (Auto) 6.4 % 04/15/20 09:49 [place] % (Auto) 7.9 % 04/15/20 09:49 Eos % (Auto) 0.0 % 04/15/20 09:49 Baso % (Auto) 0.1 % 04/15/20 09:49 Immature Gran # (Auto) 0.05 K/uL (0.00-0.02) H 04/15/20 09:49 Neut # (Auto) 16.72 K/uL (1.4-6.5) H 04/15/20 09:49 Lymph # (Auto) 1.26 K/uL (1.2-3.4) 04/15/20 09:49 [place] # (Auto) 1.54 K/uL (0.11-0.59) H 04/15/20 09:49 Eos # (Auto) 0.00 K/uL (0-0.5) 04/15/20 09:49 Baso # (Auto) 0.02 K/uL (0-0.2) 04/15/20 09:49 POC Sodium 136 mmol/L (135-144) 04/15/20 09:58 Sodium 137 mmol/L (136-145) 04/15/20 09:49 POC Potassium 4.0 mmol/L (3.3-5.0) 04/15/20 09:58 Potassium 4.0 mmol/L (3.5-5.1) 04/15/20 09:49 POC Chloride 103 mmol/L (101-112) 04/15/20 09:58 Chloride 105 mmol/L (98-107) 04/15/20 09:49 Carbon Dioxide 22 mmol/L (21-32) 04/15/20 09:49 POC Total CO2 21 mmol/L (24-31) L 04/15/20 09:58 Anion Gap 10.0 (3-11) 04/15/20 09:49 POC Anion Gap 17.0 mmol/L (16-25) 04/15/20 09:58 POC BUN 17 mg/dl (7-18) 04/15/20 09:58 BUN 17 mg/dl (7-18) 04/15/20 09:49 Creatinine 0.75 mg/dl (0.6-1.2) 04/15/20 09:49 POC Creatinine 0.6 mg/dl (0.6-1.3) 04/15/20 09:58 Est Cr Clr Drug Dosing 59.9 ml/min 04/15/20 09:49 Est GFR ( Amer) 97.6 04/15/20 09:49 Est GFR (Non-Af Amer) 84.2 04/15/20 09:49 BUN/Creatinine Ratio 22.9 (10-20) H 04/15/20 09:49 Glucose 124 mg/dl (70-99) H 04/15/20 09:49 POC Glucose (other) 128 mg/dl (70-99) H 04/15/20 09:58 Lactate 0.9 mmol/L (0.4-2.0) 04/15/20 09:49 Calcium 9.3 mg/dl (8.5-10.1) 04/15/20 09:49 POC Ioniz Calcium Renny 1.19 mmol/l (1.12-1.32) 04/15/20 09:58 Total Bilirubin 0.7 mg/dl (0.2-1) 04/15/20 09:49 AST 11 U/L (15-37) L 04/15/20 09:49 ALT 25 U/L (12-78) 04/15/20 09:49 Alkaline Phosphatase 92 U/L (45-117) 04/15/20 09:49 Total Protein 8.1 gm/dl (6.4-8.2) 04/15/20 09:49 Albumin 3.7 gm/dl (3.4-5.0) 04/15/20 09:49 Globulin 4.4 gm/dl (2.5-4.0) H 04/15/20 09:49 Albumin/Globulin Ratio 0.8 (0.9-2) L 04/15/20 09:49 Lipase 96 U/L (73-393) 04/15/20 09:49 Diagnostic Findings Chest x-ray as per my interpretation no congestion EKG as per my interpretation : Rate 100, NSR, normal axis, T wave flattening inferior leads, possible LAE (1) Acute appendicitis Acute appendicitis type: with localized peritonitis Appendicitis abscess presence: unspecified whether abscess present Appendicitis gangrene presence: unspecified whether gangrene present Appendicitis perforation presence: unspecified whether perforation present Qualified Code(s): K35.30 - Acute appendicitis with localized peritonitis, without perforation or gangrene
[2020-04-16] MEDS ORDERED: LORazepam 0.25 MG/0.5 ML VIAL IV PRN (05:37)
--- NOTE | 2020-04-16 06:35 | XRay Report ---
XR chest 1V portable CLINICAL HISTORY: htn hypertension COMPARISON STUDY: 09/02/2013 FINDINGS: The bones soft tissues and hemidiaphragms are normal. The cardiomediastinal silhouette is n ormal. The lungs are clear. The pulmonary vasculature is normal. IMPRESSION: Negative chest. ACT 112: Negative or not required by law. The above report was generated using voice recognition software. It may contain grammatical, syntax or spelling errors. Electronically signed by: Regino Estrella M.D. 04/16/2020 6:34 AM
[2020-04-16] MEDS: LEVOTHYROXINE SODIUM 50 MCG TABLET PO SCH (06:37)
[2020-04-16 06:41] LABS: Hematocrit (blood only) 39.5 % (37-47); Hemoglobin 12.9 g/dL (12.0-16.0); Immature Granulocytes # (auto) 0.05 K/uL (0.00-0.02); Immature Granulocytes % (auto) 0.3 %; Lymphocytes # (auto) 0.56 K/uL (1.2-3.4); Lymphocytes % (auto) 3.3 %; Mean Corpuscular Hemoglobin 30.3 pg (25-34); Mean Corpuscular Hgb Conc 32.7 g/dL (32-36); Mean Corpuscular Volume 92.7 fL (80-100); Mean Platelet Volume 8.8 fL (7.4-10.4); Monocytes # (auto) 1.28 K/uL (0.11-0.59); Monocytes % (auto) 7.6 %; Neutrophils % (auto) 88.8 %; Platelet Count 395 K/uL (130-400); RDW Coefficient of Variation 13.3 % (11.5-14.5); RDW Standard Deviation 45.2 fL (36.4-46.3); Red Blood Count 4.26 M/uL (4.2-5.4); White Blood Count 16.89 K/uL (4.8-10.8)
[2020-04-16 06:53] LABS: Partial Thromboplastin Time 27.3 Seconds (21.0-31.0)
[2020-04-16 07:07] LABS: BUN Creatinine Ratio 15.6 (10-20); Calcium 8.6 mg/dl (8.5-10.1); Creatinine Clr Calc Pharmacy 58.4 ml/min; Est GFR (African American) 94.6; Est GFR (Non-African American) 81.6
[2020-04-16 07:17] LABS: Thyroid Stimulating Hormone 0.579 uIu/ml (0.300-4.500)
[2020-04-16 07:19] LABS: Estimated Average Glucose 117 mg/dl; Hemoglobin A1C 5.7 % (4.5-5.6)
[2020-04-16] MEDS ORDERED: SODIUM CHLORIDE 0.9% 1000ML 1,000 ML IV ONE (08:16)
[2020-04-16] MEDS: LACTOBACILLUS ACIDOPHILUS (FLORANEX) TAB PO SCH (08:26)
--- NOTE | 2020-04-16 09:23 | Surgery Progress Note ---
Date of Service April 16, 2020 Assessment & Plan (1) Acute appendicitis: Postoperative day 0 status post open appendectomy with removal of cecum. Hemodynamically stable. Having pain. Blood pressure was elevated and appreciate internal medicine input. That may be related to the pain. Continue analgesics. Encouraged out of bed later today Subjective Postoperative day 0 status post attempted laparoscopic with open appendectomy and removal of cecum. She is having pain that is controlled by the analgesics. Her appetite has not returned. She has no nausea. Joseluis-Saleh has had 30 cc of serosanguineous output since surgery Physical Exam Gastrointestinal (Abdomen): Inspection/Auscultation: + abdomen distended (Mild) and + abdominal surgical incision (Small amount of expected drainage over the right lower quadrant incision. The other dressings are clean and dry) Percussion/Palpation: abdomen soft Results & Data Vital Signs (Past 12 Hours) Vital Signs Temp Pulse Pulse Pulse Resp BP BP 04/16/20 07:28 37.3 C 100 H 18 153/89 H 04/16/20 06:26 37.1 C 102 H 16 162/94 H 04/16/20 05:31 36.8 C 104 H 16 158/77 H 04/16/20 05:07 98 H 154/88 H 04/16/20 04:30 37.3 C 105 H 16 175/102 H 04/16/20 04:02 37.5 C 100 H 16 179/98 H 04/16/20 03:10 98 H 18 04/16/20 02:55 37.2 C 95 H 14 04/16/20 02:45 95 H 14 04/16/20 02:35 37.2 C 88 12 04/16/20 02:25 91 H 14 04/16/20 02:15 88 14 04/16/20 02:05 87 14 04/16/20 01:55 87 16 04/16/20 01:45 90 14 04/16/20 01:40 93 H 16 04/16/20 01:35 102 H 18 04/16/20 01:34 106 H 167/100 H 04/16/20 01:25 105 H 16 04/16/20 01:15 104 H 16 04/16/20 01:05 104 H 18 04/16/20 00:55 105 H 14 04/16/20 00:46 37 C 107 H 12 BP Pulse Ox 04/16/20 07:28 98 04/16/20 06:26 97 04/16/20 05:31 98 04/16/20 05:07 04/16/20 04:30 96 04/16/20 04:02 96 04/16/20 03:10 150/96 H 97 04/16/20 02:55 140/93 98 04/16/20 02:45 160/97 H 96 04/16/20 02:35 151/91 H 98 04/16/20 02:25 150/86 H 97 04/16/20 02:15 146/91 H 97 04/16/20 02:05 143/93 H 97 04/16/20 01:55 140/101 H 96 04/16/20 01:45 149/97 H 97 04/16/20 01:40 160/105 H 97 04/16/20 01:35 167/100 H 97 04/16/20 01:34 04/16/20 01:25 167/99 H 97 04/16/20 01:15 167/103 H 96 04/16/20 01:05 172/103 H 96 04/16/20 00:55 174/98 H 99 04/16/20 00:46 121/79 100 Laboratory Results 04/16/20 04/16/20 04/16/20 Range/Units 06:29 06:12 06:12 WBC (4.8-10.8) K/uL RBC (4.2-5.4) M/uL Hgb (12.0-16.0) g/dL POC Hgb (12.0-16.0) g/dl Hct (37-47) % POC Hct (37-47) % MCV (80-100) fL MCH (25-34) pg MCHC (32-36) g/dL RDW Std Deviation (36.4-46.3) fL RDW Coeff of Sharon (11.5-14.5) % Plt Count (130-400) K/uL MPV (7.4-10.4) fL Immature Gran % (Auto) % Neut % (Auto) % Lymph % (Auto) % Cloud % (Auto) % Eos % (Auto) % Baso % (Auto) % Immature Gran # (Auto) (0.00-0.02) K/uL Neut # (Auto) (1.4-6.5) K/uL Lymph # (Auto) (1.2-3.4) K/uL Cloud # (Auto) (0.11-0.59) K/uL Eos # (Auto) (0-0.5) K/uL Baso # (Auto) (0-0.2) K/uL APTT 27.3 (21.0-31.0) Seconds PTT Ratio 1.0 POC Sodium (135-144) mmol/L Sodium (136-145) mmol/L POC Potassium (3.3-5.0) mmol/L Potassium (3.5-5.1) mmol/L POC Chloride (101-112) mmol/L Chloride (98-107) mmol/L Carbon Dioxide (21-32) mmol/L POC Total CO2 (24-31) mmol/L Anion Gap (3-11) POC Anion Gap (16-25) mmol/L POC BUN (7-18) mg/dl BUN (7-18) mg/dl Creatinine (0.6-1.2) mg/dl POC Creatinine (0.6-1.3) mg/dl Est Cr Clr Drug Dosing ml/min Est GFR ( Amer) Est GFR (Non-Af Amer) BUN/Creatinine Ratio (10-20) Glucose (70-99) mg/dl POC Glucose (other) (70-99) mg/dl Estimat Average Glucose mg/dl Hemoglobin A1c (4.5-5.6) % Lactate 0.9 (0.4-2.0) mmol/L Calcium (8.5-10.1) mg/dl POC Ioniz Calcium Renny (1.12-1.32) mmol/l Magnesium 1.9 (1.8-2.4) mg/dl Total Bilirubin (0.2-1) mg/dl AST (15-37) U/L ALT (12-78) U/L Alkaline Phosphatase (45-117) U/L Total Protein (6.4-8.2) gm/dl Albumin (3.4-5.0) gm/dl Globulin (2.5-4.0) gm/dl Albumin/Globulin Ratio (0.9-2) Lipase (73-393) U/L TSH (0.300-4.500) uIu/ml 04/16/20 04/16/20 04/16/20 Range/Units 06:12 06:12 06:12 WBC 16.89 H (4.8-10.8) K/uL RBC 4.26 (4.2-5.4) M/uL Hgb 12.9 (12.0-16.0) g/dL POC Hgb (12.0-16.0) g/dl Hct 39.5 (37-47) % POC Hct (37-47) % MCV 92.7 (80-100) fL MCH 30.3 (25-34) pg MCHC 32.7 (32-36) g/dL RDW Std Deviation 45.2 (36.4-46.3) fL RDW Coeff of Sharon 13.3 (11.5-14.5) % Plt Count 395 (130-400) K/uL MPV 8.8 (7.4-10.4) fL Immature Gran % (Auto) 0.3 % Neut % (Auto) 88.8 % Lymph % (Auto) 3.3 % Cloud % (Auto) 7.6 % Eos % (Auto) 0.0 % Baso % (Auto) 0.0 % Immature Gran # (Auto) 0.05 H (0.00-0.02) K/uL Neut # (Auto) 15.00 H (1.4-6.5) K/uL Lymph # (Auto) 0.56 L (1.2-3.4) K/uL Cloud # (Auto) 1.28 H (0.11-0.59) K/uL Eos # (Auto) 0.00 (0-0.5) K/uL Baso # (Auto) 0.00 (0-0.2) K/uL APTT (21.0-31.0) Seconds PTT Ratio POC Sodium (135-144) mmol/L Sodium 136 (136-145) mmol/L POC Potassium (3.3-5.0) mmol/L Potassium 4.0 (3.5-5.1) mmol/L POC Chloride (101-112) mmol/L Chloride 103 (98-107) mmol/L Carbon Dioxide 26 (21-32) mmol/L POC Total CO2 (24-31) mmol/L Anion Gap 6.0 (3-11) POC Anion Gap (16-25) mmol/L POC BUN (7-18) mg/dl BUN 12 (7-18) mg/dl Creatinine 0.77 (0.6-1.2) mg/dl POC Creatinine (0.6-1.3) mg/dl Est Cr Clr Drug Dosing 58.4 ml/min Est GFR ( Amer) 94.6 Est GFR (Non-Af Amer) 81.6 BUN/Creatinine Ratio 15.6 (10-20) Glucose 140 H (70-99) mg/dl POC Glucose (other) (70-99) mg/dl Estimat Average Glucose 117 mg/dl Hemoglobin A1c 5.7 H (4.5-5.6) % Lactate (0.4-2.0) mmol/L Calcium 8.6 (8.5-10.1) mg/dl POC Ioniz Calcium Renny (1.12-1.32) mmol/l Magnesium (1.8-2.4) mg/dl Total Bilirubin (0.2-1) mg/dl AST (15-37) U/L ALT (12-78) U/L Alkaline Phosphatase (45-117) U/L Total Protein (6.4-8.2) gm/dl Albumin (3.4-5.0) gm/dl Globulin (2.5-4.0) gm/dl Albumin/Globulin Ratio (0.9-2) Lipase (73-393) U/L TSH 0.579 (0.300-4.500) uIu/ml 04/15/20 04/15/20 04/15/20 Range/Units 09:58 09:49 09:49 WBC (4.8-10.8) K/uL RBC (4.2-5.4) M/uL Hgb (12.0-16.0) g/dL POC Hgb 15.3 (12.0-16.0) g/dl Hct (37-47) % POC Hct 45 (37-47) % MCV (80-100) fL MCH (25-34) pg MCHC (32-36) g/dL RDW Std Deviation (36.4-46.3) fL RDW Coeff of Sharon (11.5-14.5) % Plt Count (130-400) K/uL MPV (7.4-10.4) fL Immature Gran % (Auto) % Neut % (Auto) % Lymph % (Auto) % Cloud % (Auto) % Eos % (Auto) % Baso % (Auto) % Immature Gran # (Auto) (0.00-0.02) K/uL Neut # (Auto) (1.4-6.5) K/uL Lymph # (Auto) (1.2-3.4) K/uL Cloud # (Auto) (0.11-0.59) K/uL Eos # (Auto) (0-0.5) K/uL Baso # (Auto) (0-0.2) K/uL APTT (21.0-31.0) Seconds PTT Ratio POC Sodium 136 (135-144) mmol/L Sodium 137 (136-145) mmol/L POC Potassium 4.0 (3.3-5.0) mmol/L Potassium 4.0 (3.5-5.1) mmol/L POC Chloride 103 (101-112) mmol/L Chloride 105 (98-107) mmol/L Carbon Dioxide 22 (21-32) mmol/L POC Total CO2 21 L (24-31) mmol/L Anion Gap 10.0 (3-11) POC Anion Gap 17.0 (16-25) mmol/L POC BUN 17 (7-18) mg/dl BUN 17 (7-18) mg/dl Creatinine 0.75 (0.6-1.2) mg/dl POC Creatinine 0.6 (0.6-1.3) mg/dl Est Cr Clr Drug Dosing 59.9 ml/min Est GFR ( Amer) 97.6 Est GFR (Non-Af Amer) 84.2 BUN/Creatinine Ratio 22.9 H (10-20) Glucose 124 H (70-99) mg/dl POC Glucose (other) 128 H (70-99) mg/dl Estimat Average Glucose mg/dl Hemoglobin A1c (4.5-5.6) % Lactate 0.9 (0.4-2.0) mmol/L Calcium 9.3 (8.5-10.1) mg/dl POC Ioniz Calcium Renny 1.19 (1.12-1.32) mmol/l Magnesium (1.8-2.4) mg/dl Total Bilirubin 0.7 (0.2-1) mg/dl AST 11 L (15-37) U/L ALT 25 (12-78) U/L Alkaline Phosphatase 92 (45-117) U/L Total Protein 8.1 (6.4-8.2) gm/dl Albumin 3.7 (3.4-5.0) gm/dl Globulin 4.4 H (2.5-4.0) gm/dl Albumin/Globulin Ratio 0.8 L (0.9-2) Lipase 96 (73-393) U/L TSH (0.300-4.500) uIu/ml 04/15/20 Range/Units 09:49 WBC 19.59 H (4.8-10.8) K/uL RBC 4.78 (4.2-5.4) M/uL Hgb 14.5 (12.0-16.0) g/dL POC Hgb (12.0-16.0) g/dl Hct 42.5 (37-47) % POC Hct (37-47) % MCV 88.9 (80-100) fL MCH 30.3 (25-34) pg MCHC 34.1 (32-36) g/dL RDW Std Deviation 40.8 (36.4-46.3) fL RDW Coeff of Sharon 12.6 (11.5-14.5) % Plt Count 383 (130-400) K/uL MPV 8.9 (7.4-10.4) fL Immature Gran % (Auto) 0.3 % Neut % (Auto) 85.3 % Lymph % (Auto) 6.4 % Cloud % (Auto) 7.9 % Eos % (Auto) 0.0 % Baso % (Auto) 0.1 % Immature Gran # (Auto) 0.05 H (0.00-0.02) K/uL Neut # (Auto) 16.72 H (1.4-6.5) K/uL Lymph # (Auto) 1.26 (1.2-3.4) K/uL Cloud # (Auto) 1.54 H (0.11-0.59) K/uL Eos # (Auto) 0.00 (0-0.5) K/uL Baso # (Auto) 0.02 (0-0.2) K/uL APTT (21.0-31.0) Seconds PTT Ratio POC Sodium (135-144) mmol/L Sodium (136-145) mmol/L POC Potassium (3.3-5.0) mmol/L Potassium (3.5-5.1) mmol/L POC Chloride (101-112) mmol/L Chloride (98-107) mmol/L Carbon Dioxide (21-32) mmol/L POC Total CO2 (24-31) mmol/L Anion Gap (3-11) POC Anion Gap (16-25) mmol/L POC BUN (7-18) mg/dl BUN (7-18) mg/dl Creatinine (0.6-1.2) mg/dl POC Creatinine (0.6-1.3) mg/dl Est Cr Clr Drug Dosing ml/min Est GFR ( Amer) Est GFR (Non-Af Amer) BUN/Creatinine Ratio (10-20) Glucose (70-99) mg/dl POC Glucose (other) (70-99) mg/dl Estimat Average Glucose mg/dl Hemoglobin A1c (4.5-5.6) % Lactate (0.4-2.0) mmol/L Calcium (8.5-10.1) mg/dl POC Ioniz Calcium Renny (1.12-1.32) mmol/l Magnesium (1.8-2.4) mg/dl Total Bilirubin (0.2-1) mg/dl AST (15-37) U/L ALT (12-78) U/L Alkaline Phosphatase (45-117) U/L Total Protein (6.4-8.2) gm/dl Albumin (3.4-5.0) gm/dl Globulin (2.5-4.0) gm/dl Albumin/Globulin Ratio (0.9-2) Lipase (73-393) U/L TSH (0.300-4.500) uIu/ml (1) Acute appendicitis Acute appendicitis type: with localized peritonitis Appendicitis abscess presence: unspecified whether abscess present Appendicitis gangrene presence: unspecified whether gangrene present Appendicitis perforation presence: unspecified whether perforation present Qualified Code(s): K35.30 - Acute appendicitis with localized peritonitis, without perforation or gangrene
--- NOTE | 2020-04-16 11:20 | Electrocardiogram Report ---
Test Reason : Blood Pressure : / mmHG Vent. Rate : 106 BPM Atrial Rate : 106 BPM P-R Int : 156 ms QRS Dur : 074 ms QT Int : 320 ms P-R-T Axes : 070 053 059 degrees QTc Int : 425 ms Sinus tachycardia Nonspecific T wave abnormality Abnormal ECG When compared with ECG of 02-SEP-2013 12:16, T wave inversion no longer evident in Lateral leads Confirmed by Willy Rivero ([id number]) on 04/16/2020 11:19:54 AM Referred By: REFERRED SELF Confirmed By:Willy Rivero
--- NOTE | 2020-04-16 11:32 | Electrocardiogram Report ---
Test Reason : Blood Pressure : / mmHG Vent. Rate : 098 BPM Atrial Rate : 098 BPM P-R Int : 154 ms QRS Dur : 084 ms QT Int : 334 ms P-R-T Axes : 058 018 032 degrees QTc Int : 426 ms Normal sinus rhythm Possible Left atrial enlargement Borderline ECG When compared with ECG of 15-APR-2020 17:59, (unconfirmed) No significant change was found Confirmed by Willy Rivero ([id number]) on 04/16/2020 11:31:48 AM Referred By: REFERRED SELF Confirmed By:Willy Rivero
--- NOTE | 2020-04-16 18:35 | Communication Note ---
Date of Service: April 16, 2020 Pt was seen and examined. Siting in bed with no distress. She was just coming from the bathroom to urinate. Pt said that she does have some abdominal tende rness. She said that abdominal pain is worst with movement. She said that pain improves with the narcotic. Denies any chest pain, palpitation, dizziness and SOB. Exam General- No acute distress Head- atraumatic Eyes- PERRL, EOMI, ENT- oropharynx clear Neck- supple, no JVD Lungs- clear to auscultation Heart- regular rhythm; no murmur Abdomen- normal bowel sounds, soft, +tender Extremities- no calf tenderness Neuro- alert, oriented x 3; PERRL, EOMI; no facial palsy; no dysarthria Skin- warm & dry A/P Acute appendicitis CT abd/pelvis showed acute appendicitis and periappendiceal infiltrative change with a probable developing high density phlegmon measuring 4 x 5 cm. S/P Laparoscopic, converted to open, Appendectomy and bowel resection performed by Dr. Becerra No post op complication Continue IV abx with Zosyn Starting on clear liquid diet Continue management as per Surgery Hypertension Seems to be related to pain and hospital setting Received Clonidine and was starting on Lisinopril 2.5 mg Pt said that she tried BP med in the past, but could not tolerate them due to low BP BP in the low side now Continue monitor BP Code status Full code
[2020-04-17] MEDS: OXYCODONE/ACETAMINOPHEN 5mg/325mg TAB PO PRN ×4 (03:15→19:31)
[2020-04-17] MEDS: PIPERACILLIN/TAZOBACTAM 3.375 GM in DEXTROSE 5% 100 ML IV SCH ×3 (05:34→20:24)
[2020-04-17] MEDS: LEVOTHYROXINE SODIUM 50 MCG TABLET PO SCH (05:36)
[2020-04-17 06:21] LABS: Basophils # (auto) 0.01 K/uL (0-0.2); Basophils % (auto) 0.1 %; Eosinophils % (auto) 0.9 %; Hematocrit (blood only) 33.7 % (37-47); Hemoglobin 10.6 g/dL (12.0-16.0); Immature Granulocytes # (auto) 0.03 K/uL (0.00-0.02); Immature Granulocytes % (auto) 0.3 %; Lymphocytes # (auto) 1.12 K/uL (1.2-3.4); Lymphocytes % (auto) 10.1 %; Mean Corpuscular Hemoglobin 29.6 pg (25-34); Mean Corpuscular Hgb Conc 31.5 g/dL (32-36); Mean Corpuscular Volume 94.1 fL (80-100); Mean Platelet Volume 8.7 fL (7.4-10.4); Monocytes # (auto) 1.17 K/uL (0.11-0.59); Monocytes % (auto) 10.5 %; Neutrophils % (auto) 78.1 %; Platelet Count 356 K/uL (130-400); RDW Coefficient of Variation 13.2 % (11.5-14.5); RDW Standard Deviation 46.2 fL (36.4-46.3); Red Blood Count 3.58 M/uL (4.2-5.4); White Blood Count 11.13 K/uL (4.8-10.8)
[2020-04-17] MEDS: LACTOBACILLUS ACIDOPHILUS (FLORANEX) TAB PO SCH (09:03)
--- NOTE | 2020-04-17 09:12 | Surgery Progress Note ---
Date of Service April 17, 2020 Assessment & Plan (1) Acute appendicitis: Status post laparoscopic converted to open appendectomy Postop day 2 Feels some better today Can advance to full liquid diet Encouraged ambulation Continue IV antibiotics Subjective Postoperative day 2 status post laparoscopic converted to open appendectomy Having well slightly less pain today and it is well controlled Denies nausea and vomiting Has not passed flatus as yet Tolerated clear liquid diet Joseluis-Saleh had 90 cc yesterday and 40 cc last shift all serosanguineous Physical Exam Gastrointestinal (Abdomen): Inspection/Auscultation: + abdomen distended (Mild) Percussion/Palpation: + abdomen tender (Incisional only) and abdomen soft Results & Data Vital Signs (Past 12 Hours) Vital Signs Temp Pulse Resp BP Pulse Ox 04/17/20 07:15 37.5 C 89 18 113/69 92 04/16/20 23:52 36.8 C 92 H 18 110/71 92 Laboratory Results 04/17/20 Range/Units 05:54 WBC 11.13 H (4.8-10.8) K/uL RBC 3.58 L (4.2-5.4) M/uL Hgb 10.6 L (12.0-16.0) g/dL Hct 33.7 L (37-47) % MCV 94.1 (80-100) fL MCH 29.6 (25-34) pg MCHC 31.5 L (32-36) g/dL RDW Std Deviation 46.2 (36.4-46.3) fL RDW Coeff of Sharon 13.2 (11.5-14.5) % Plt Count 356 (130-400) K/uL MPV 8.7 (7.4-10.4) fL Immature Gran % (Auto) 0.3 % Neut % (Auto) 78.1 % Lymph % (Auto) 10.1 % Ellsworth % (Auto) 10.5 % Eos % (Auto) 0.9 % Baso % (Auto) 0.1 % Immature Gran # (Auto) 0.03 H (0.00-0.02) K/uL Neut # (Auto) 8.70 H (1.4-6.5) K/uL Lymph # (Auto) 1.12 L (1.2-3.4) K/uL Ellsworth # (Auto) 1.17 H (0.11-0.59) K/uL Eos # (Auto) 0.10 (0-0.5) K/uL Baso # (Auto) 0.01 (0-0.2) K/uL (1) Acute appendicitis Acute appendicitis type: with localized peritonitis Appendicitis abscess presence: unspecified whether abscess present Appendicitis gangrene presence: unspecified whether gangrene present Appendicitis perforation presence: unspecified whether perforation present Qualified Code(s): K35.30 - Acute appendicitis with localized peritonitis, without perforation or gangrene
[2020-04-17] MEDS: MoRPHine SULFATE 4 MG/ML 1 ML CARP\\VIAL IV PRN ×3 (16:20→23:58)
--- NOTE | 2020-04-17 17:42 | Hospitalist Progress Note ---
Date of Service April 17, 2020 Assessment & Plan (1) Acute appendicitis: CT abd/pelvis showed acute appendicitis and periappendiceal infiltrative change with a probable developing high density phlegmon measuring 4 x 5 cm. S/P# 2 laparoscopic, converted to open, Appendectomy and bowel resection performed by Dr. Becerra No post op complication Continue IV abx with Zosyn Continue clear liquid diet Continue management as per Surgery Hypertension Seems to be related to pain and hospital setting Received Clonidine and was starting on Lisinopril 2.5 mg Pt said that she tried BP med in the past, but could not tolerate them due to low BP BP stable Continue monitor BP Hypothyroidism Continue Levothyroxine DVT px SCD for now Will recommend to start on heparin subq once bleeding stable Code Status Full code Admission and Anticipated Discharge Date Admission Date: April 16, 2020 Subjective Pt was seen and examined Lying in bed with no distress She said that she has not had a BM yet Denies any chest pain, palpitation and SOB Physical Exam Physical Exam: General- No acute distress Head- atraumatic Eyes- PERRL, EOMI, ENT- oropharynx clear Neck- supple, no JVD Lungs- clear to auscultation Heart- regular rhythm; no murmur Abdomen- normal bowel sounds, soft, +tender Extremities- no calf tenderness Neuro- alert, oriented x 3; PERRL, EOMI; no facial palsy; no dysarthria Skin- warm & dry Results & Data Results & Data ([facility]) Vital Signs (Past 12 Hours) Vital Signs Temp Pulse Resp BP Pulse Ox 04/17/20 15:03 36.9 C 97 H 18 135/81 92 04/17/20 07:15 37.5 C 89 18 113/69 92 (1) Acute appendicitis Acute appendicitis type: with localized peritonitis Appendicitis abscess presence: unspecified whether abscess present Appendicitis gangrene presence: unspecified whether gangrene present Appendicitis perforation presence: unspecified whether perforation present Qualified Code(s): K35.30 - Acute appendicitis with localized peritonitis, without perforation or gangrene
[2020-04-18] MEDS: ONDANSETRON INJ 2 MG/ML 2 ML VIAL IV PRN ×4 (00:07→23:19)
[2020-04-18] MEDS: MoRPHine SULFATE 4 MG/ML 1 ML CARP\\VIAL IV PRN ×5 (03:05→23:19)
[2020-04-18] MEDS: PIPERACILLIN/TAZOBACTAM 3.375 GM in DEXTROSE 5% 100 ML IV SCH ×3 (05:57→20:10)
[2020-04-18 06:03] LABS: Basophils # (auto) 0.03 K/uL (0-0.2); Basophils % (auto) 0.3 %; Eosinophils # (auto) 0.36 K/uL (0-0.5); Eosinophils % (auto) 3.2 %; Hematocrit (blood only) 35.3 % (37-47); Hemoglobin 11.3 g/dL (12.0-16.0); Immature Granulocytes # (auto) 0.04 K/uL (0.00-0.02); Immature Granulocytes % (auto) 0.4 %; Lymphocytes # (auto) 1.34 K/uL (1.2-3.4); Lymphocytes % (auto) 11.9 %; Mean Corpuscular Hemoglobin 29.7 pg (25-34); Mean Corpuscular Volume 92.9 fL (80-100); Mean Platelet Volume 8.4 fL (7.4-10.4); Monocytes % (auto) 10.7 %; Neutrophils # (auto) 8.28 K/uL (1.4-6.5); Neutrophils % (auto) 73.5 %; Platelet Count 425 K/uL (130-400); RDW Standard Deviation 44.1 fL (36.4-46.3); White Blood Count 11.25 K/uL (4.8-10.8)
[2020-04-18] MEDS: LEVOTHYROXINE SODIUM 50 MCG TABLET PO SCH (06:04)
--- NOTE | 2020-04-18 07:57 | Operative Report (OR) ---
DATE OF OPERATION: 04/16/2020 PREOPERATIVE DIAGNOSIS: Acute appendicitis. POSTOPERATIVE DIAGNOSIS: Acute perforated appendicitis. PROCEDURE: Laparoscopic appendectomy with conversion for removal of the cecum and terminal ileum. SURGEON: Regino Becerra MD MOLASSES PREPARER: None. FINDINGS: The appendix was gangrenous. It was densely adherent to the lateral abdominal wall. It was friable. There was a walled off area of purulent material. This was between the wall of the cecum and the appendix. The base of the appendix could not be identified laparoscopically after the appendix fractured and the majority of it was removed. Even after opening I could barely identify an area that was the base of the appendix and there was a lot of induration of the cecum itself. For that reason, I decided to remove the cecum and the terminal approximately 6-7 cm of the ileum. The rest of the bowel appeared normal. TECHNIQUE: The patient was given a general anesthetic and the area was prepped and draped in the usual sterile fashion. The skin and subcutaneous tissue inferior to the umbilicus was anesthetized with 1% Xylocaine without epinephrine. Skin incision was made, carried down through the subcutaneous tissue to the fascia which was grasped with 2 Damian clamps and incised between. The peritoneum was identified, incised and introducer was placed bluntly. The abdomen was then insufflated to a pressure of 15 mmHg with carbon dioxide. The site for the lower midline introducer was chosen and the skin was anesthetized with 1% Xylocaine. Skin incision was made and the introducer was placed bluntly. I then was able to dissect the omentum away from the lateral and inferolateral abdominal wall in the right. It was loosely adherent. That exposed the small bowel. The patient was placed in Trendelenburg and airplaned left in order to get that to retract. It showed the cecum with a large amount of phlegmon, but I could identify the cecum lying laterally. There was dense adhesion of the anterior wall of the cecum and the appendix to the anterior abdominal wall, lateral abdominal wall, but those adhesions were able to be taken down using blunt dissection and I was then able to roll the cecum medially and see the appendix. It was difficult to grasp the appendix due to its thickness and I did not want to tear the appendix. I was able to separate the mesoappendix and divide it using the LigaSure. That allowed me to elevate the appendix and then elevating the appendix did expose the cavity of purulent material. This was irrigated and removed with suction. Further dissection was then carried out working from the tip of the appendix proximally dividing the mesoappendix as I was able to free some of it away from the wall of the cecum. Once I got up to the proximal part of the abscess cavity, the appendix fractured and . I placed it into an Endobag and brought it out through the left lower quadrant introducer site. I then dissected the cecum anteriorly and there was continued induration and phlegmon and I could not identify the base of the appendix. I mobilized the terminal ileum and looked posterior behind the cecum, but could not identify the base there either. For that reason, I decided to open. The gas was allowed to escape and the introducers were removed. A Renny-Rakesh incision was performed and carried down through the subcutaneous tissue. The fascia was opened transversely and the muscle was split. The transversalis and peritoneum were each opened individually along the length of the incision. The lateral aspect of the rectus muscle was divided for better exposure. I then was able to grasp the cecum. I brought it up to skin level. I had to separate the lateral attachments of the proximal portion of the ascending colon in order to eviscerate the cecum appropriately. I did also divide some attachments laterally of the terminal ileum. Once I was able to eviscerate the cecum, I then inspected it. There was one area that was suspicious for the base of the appendix, but it was only about 5 mm long. There was a lot of induration in that area. I did not want to place a stapler across that portion as it was close to the ileocecal valve and I was concerned about narrowing the ileocecal valve. For that reason, I decided to remove the cecum and approximately 6-7 cm of terminal ileum. The mesentery was away from the wall of the proximal ascending colon just above the cecum and it was divided using the HITESH. The site for division of the terminal ileum was chosen. The mesentery was away from the wall and it was divided using the HITESH. The intervening portion of the mesentery was divided using the LigaSure. There was no bleeding. The specimen was sent for pathology. The anterior medial wall of the ascending colon was freed of any fat and the small bowel was approximated in a functional end-to-end manner. It was approximated using interrupted 3-0 silk sutures. The antimesenteric border of each staple line was removed and the limb of the HITESH was placed into each limb of the bowel and it was approximated and fired. There was no bleeding from the staple line. The common opening was then closed with a TA stapler. Staple line was reinforced with additional 3-0 silk sutures. The mesentery was closed with a running 2-0 Vicryl. This was all placed back into the abdomen. The right lower quadrant and pelvis was irrigated and the irrigation removed. A separate stab incision was made superolateral to the incision through which a 10 mm Joseluis-Saleh drain was brought. This was placed along the right lateral abdominal wall into the pelvis and secured with a 3-0 nylon at the skin level. The peritoneum was then closed with a running 2-0 Vicryl. Running 0 Vicryl was used for the internal oblique fascia and the anterior rectus sheath and the external oblique fascia were closed with a running #1 PDS. The fascia of the umbilical and left lower quadrant introducer sites was closed with interrupted 0 Vicryl. A Richards drain was also placed in the Renny-Rakesh incision and secured with 3-0 nylon, that was closed with intermittent guero. The three laparoscopic incisions were closed with guero. The estimated blood loss was 30 mL. Sponge, needle, and instrument counts were correct prior to closure. The patient tolerated the surgical procedure without complication and was transferred to recovery. I attest to the content of the Intraoperative Record and any orders documented therein. Any exception s are noted below.
[2020-04-18] MEDS: OXYCODONE/ACETAMINOPHEN 5mg/325mg TAB PO PRN ×3 (08:55→20:09)
[2020-04-18] MEDS: LACTOBACILLUS ACIDOPHILUS (FLORANEX) TAB PO SCH (08:55)
[2020-04-18 09:01] LABS: Creatinine Clr Calc Pharmacy 80.3 ml/min; Est GFR (African American) 114.2; Est GFR (Non-African American) 98.5
--- NOTE | 2020-04-18 15:32 | Surgery Progress Note ---
Date of Service April 18, 2020 Assessment & Plan (1) Acute appendicitis: Status post laparoscopic converted to open appendectomy Postop day 3 Feels some better today continue clears Encouraged ambulation Continue IV antibiotics DR. elizabeth has seen and examined patient, agrees with above Subjective feeling better today less bloated today still no flatus or bowel movement no nausea tolerated clear liquids Physical Exam Constitutional: WD/WN, vitals as above no acute distress Respiratory: normal respiratory effort Gastrointestinal (Abdomen): Inspection/Auscultation: + abdomen distended (mild) and + abdominal surgical drain present (serosanguineous); + abnormal bowel sounds Percussion/Palpation: + abdomen tender (at incision site) and abdomen soft; no guarding and abdomen not rigid Skin: no rashes, warm and dry Psychiatric: A+Ox3, euthymic affect Results & Data Vital Signs (Past 12 Hours) Vital Signs Temp Pulse Resp BP BP Pulse Ox 04/18/20 15:29 36.8 C 89 16 133/84 91 04/18/20 08:53 146/89 H 04/18/20 07:19 37.3 C 98 H 17 119/73 91 Laboratory Results 04/18/20 04/18/20 Range/Units 05:50 05:46 WBC 11.25 H (4.8-10.8) K/uL RBC 3.80 L (4.2-5.4) M/uL Hgb 11.3 L (12.0-16.0) g/dL Hct 35.3 L (37-47) % MCV 92.9 (80-100) fL MCH 29.7 (25-34) pg MCHC 32.0 (32-36) g/dL RDW Std Deviation 44.1 (36.4-46.3) fL RDW Coeff of [place] 13.0 (11.5-14.5) % Plt Count 425 H (130-400) K/uL MPV 8.4 (7.4-10.4) fL Immature Gran % (Auto) 0.4 % Neut % (Auto) 73.5 % Lymph % (Auto) 11.9 % [place] % (Auto) 10.7 % Eos % (Auto) 3.2 % Baso % (Auto) 0.3 % Immature Gran # (Auto) 0.04 H (0.00-0.02) K/uL Neut # (Auto) 8.28 H (1.4-6.5) K/uL Lymph # (Auto) 1.34 (1.2-3.4) K/uL [place] # (Auto) 1.20 H (0.11-0.59) K/uL Eos # (Auto) 0.36 (0-0.5) K/uL Baso # (Auto) 0.03 (0-0.2) K/uL Creatinine 0.56 L (0.6-1.2) mg/dl Est Cr Clr Drug Dosing 80.3 ml/min Est GFR ( Amer) 114.2 Est GFR (Non-Af Amer) 98.5 (1) Acute appendicitis Acute appendicitis type: with localized peritonitis Appendicitis abscess presence: unspecified whether abscess present Appendicitis gangrene presence: unspecified whether gangrene present Appendicitis perforation presence: unspecified whether perforation present Qualified Code(s): K35.30 - Acute appendicitis with localized peritonitis, without perforation or gangrene
[2020-04-18] MEDS ORDERED: ACETAMINOPHEN 325 MG TAB PO PRN (15:33)
--- NOTE | 2020-04-18 17:01 | Hospitalist Progress Note ---
Date of Service April 18, 2020 Assessment & Plan (1) Acute appendicitis: CT abd/pelvis showed acute appendicitis and periappendiceal infiltrative change with a probable developing high density phlegmon measuring 4 x 5 cm. S/P# 3 laparoscopic, converted to open, Appendectomy and bowel resection performed by Dr. Becerra No post op complication Continue IV abx with Zosyn Continue clear liquid diet Has not had a BM yet. She said that she feels a little distended Will get a KUB abdomen Continue management as per Surgery Hypertension Seems to be related to pain and hospital setting Received Clonidine and was starting on Lisinopril 2.5 mg Pt said that she tried BP med in the past, but could not tolerate them due to low BP BP stable Continue monitor BP Hypothyroidism Continue Levothyroxine DVT px SCD for now Consider to start on heparin subq once bleeding stable Code Status Full code Admission and Anticipated Discharge Date Admission Date: April 16, 2020 Subjective Pt was seen and examined Lying in bed with no distress She said that she walked in the hallway this morning She said that her abdominal pain improves No BM yet and not passing gas yet Denies any nausea, vomiting, fever and SOB Physical Exam Physical Exam: General- No acute distress Head- atraumatic Eyes- PERRL, EOMI, ENT- oropharynx clear Neck- supple, no JVD Lungs- clear to auscultation Heart- regular rhythm; no murmur Abdomen- normal bowel sounds, soft, +tender, +IRAIDA drainage Extremities- no calf tenderness Neuro- alert, oriented x 3; PERRL, EOMI; no facial palsy; no dysarthria Skin- warm & dry Results & Data Results & Data ([facility]) Vital Signs (Past 12 Hours) Vital Signs Temp Pulse Resp BP BP Pulse Ox 04/18/20 15:29 36.8 C 89 16 133/84 91 04/18/20 08:53 146/89 H 04/18/20 07:19 37.3 C 98 H 17 119/73 91 (1) Acute appendicitis Acute appendicitis type: with localized peritonitis Appendicitis abscess presence: unspecified whether abscess present Appendicitis gangrene presence: unspecified whether gangrene present Appendicitis perforation presence: unspecified whether perforation present Qualified Code(s): K35.30 - Acute appendicitis with localized peritonitis, without perforation or gangrene
--- NOTE | 2020-04-18 17:26 | XRay Report ---
XR KUB/Abdomen 1 view CLINICAL HISTORY: abdominal tenderness/mild distention COMPARISON STUDY: No previous studies for comparison. FINDINGS: Mild nonobstructive ileus. Postoperative changes to the lower abdomen. Surgical drain right lateral pelvis. IMPRESSION: Mild nonobstructive ileus. ACT 112: Negative or not required by law. The above report was generated using voice recognition software. It may contain grammatical, syntax or spelling errors. Electronically signed by: Regino Estrella M.D. 04/18/2020 5:25 PM
[2020-04-19] MEDS: OXYCODONE/ACETAMINOPHEN 5mg/325mg TAB PO PRN ×2 (00:06→06:51)
[2020-04-19] MEDS: PIPERACILLIN/TAZOBACTAM 3.375 GM in DEXTROSE 5% 100 ML IV SCH ×3 (05:29→20:29)
[2020-04-19] MEDS: LEVOTHYROXINE SODIUM 50 MCG TABLET PO SCH (05:29)
[2020-04-19 05:56] LABS: Creatinine Clr Calc Pharmacy 56.2 ml/min; Est GFR (African American) 90.3; Est GFR (Non-African American) 77.9
[2020-04-19] MEDS ORDERED: Nursing to Pharmacy Communication SCH (08:15)
[2020-04-19] MEDS: LACTOBACILLUS ACIDOPHILUS (FLORANEX) TAB PO SCH (09:07)
[2020-04-19] MEDS ORDERED: bisacodyL 10 MG SUPP PR STA ×2 (11:14→14:00)
[2020-04-19] MEDS: ONDANSETRON INJ 2 MG/ML 2 ML VIAL IV PRN (12:27)
[2020-04-19] MEDS: KETOROLAC 30 MG/ML VIAL IV PRN ×2 (12:28→20:30)
[2020-04-19] MEDS: ACETAMINOPHEN 1000 MG/100 ML IV IV PRN ×2 (13:44→22:00)
--- NOTE | 2020-04-19 16:35 | Surgery Progress Note ---
Date of Service April 19, 2020 Assessment & Plan (1) Acute appendicitis: Status post laparoscopic converted to open appendectomy Postop day 4 -avss - mic with 25 cc last shift, serous - no return of bowel function yet - KUB 04/18/2020 showing ileus Plan: IV Tylenol and Toradol prn pain, try to avoid narcotic given ileus continue clear liquids continue ambulation continue iv abx dulcolax suppository Patient evaluated later with Dr. Becerra, passed gas with ambulation, just a small amount. Will trial IV tylenol/toradol prn pain increase activity DR. becerra has seen and examined patient, agrees with above Subjective feeling better today but still not passing gas or bowel movement felt increase in bloating since this morning tolerated clear liquids without nausea or vomiting mild nausea with pain meds, zofran controls ambulating hallway no difficulty urinating Physical Exam Constitutional: WD/WN, vitals as above not ill appearing Gastrointestinal (Abdomen): Inspection/Auscultation: + abdomen distended (moderate) and + abdominal surgical drain present (serous); + abnormal bowel sounds (hypoactive) Percussion/Palpation: + abdomen tender (generalized) and abdomen soft; no guarding and abdomen not rigid Skin: no rashes, warm and dry + incision (clean/dry/intact) Psychiatric: A+Ox3, euthymic affect Results & Data Vital Signs (Past 12 Hours) Vital Signs Temp Pulse Resp BP Pulse Ox 04/19/20 15:54 36.8 C 88 16 135/92 91 04/19/20 09:05 130/88 04/19/20 07:11 36.8 C 84 16 132/79 91 Laboratory Results 04/19/20 Range/Units 04:40 Creatinine 0.80 (0.6-1.2) mg/dl Est Cr Clr Drug Dosing 56.2 ml/min Est GFR ( Amer) 90.3 Est GFR (Non-Af Amer) 77.9 Diagnostic Findings XR KUB/Abdomen 1 view 04/18/2020 CLINICAL HISTORY: abdominal tenderness/mild distention COMPARISON STUDY: No previous studies for comparison. FINDINGS: Mild nonobstructive ileus. Postoperative changes to the lower abdomen. Surgical drain right lateral pelvis. IMPRESSION: Mild nonobstructive ileus. (1) Acute appendicitis Acute appendicitis type: with localized peritonitis Appendicitis abscess presence: unspecified whether abscess present Appendicitis gangrene presence: unspecified whether gangrene present Appendicitis perforation presence: unspecified whether perforation present Qualified Code(s): K35.30 - Acute appendicitis with localized peritonitis, without perforation or gangrene
--- NOTE | 2020-04-19 17:31 | Hospitalist Progress Note ---
Date of Service April 19, 2020 Assessment & Plan (1) Acute appendicitis: CT abd/pelvis showed acute appendicitis and periappendiceal infiltrative change with a probable developing high density phlegmon measuring 4 x 5 cm. S/P# 4 laparoscopic, converted to open, Appendectomy and bowel resection performed by Dr. Becerra No post op complication Continue IV abx with Zosyn Continue clear liquid diet Has not had a BM yet. She said that she feels a little distended KUB showed mild nonobstructive ileus. Continue management as per Surgery Hypertension Seems to be related to pain and hospital setting Received Clonidine and was starting on Lisinopril 2.5 mg Pt said that she tried BP med in the past, but could not tolerate them due to low BP BP stable Continue monitor BP Hypothyroidism Continue Levothyroxine DVT px SCD for now Consider to start on heparin subq once bleeding stable Code Status Full code Admission and Anticipated Discharge Date Admission Date: April 16, 2020 Subjective Pt was seen and examined Lying in bed with no distress Pt said that her pain is a little better She said that has been walking in the hallway No BM so far, but passing gas Denies any chest pain, palpitation and SOB Physical Exam Physical Exam: General- No acute distress Head- atraumatic Eyes- PERRL, EOMI, ENT- oropharynx clear Neck- supple, no JVD Lungs- clear to auscultation Heart- regular rhythm; no murmur Abdomen- normal bowel sounds, soft, +tender, +IRAIDA drainage Extremities- no calf tenderness Neuro- alert, oriented x 3; PERRL, EOMI; no facial palsy; no dysarthria Skin- warm & dry Results & Data Results & Data ([facility]) Vital Signs (Past 12 Hours) Vital Signs Temp Pulse Resp BP Pulse Ox 04/19/20 15:54 36.8 C 88 16 135/92 91 04/19/20 09:05 130/88 04/19/20 07:11 36.8 C 84 16 132/79 91 (1) Acute appendicitis Acute appendicitis type: with localized peritonitis Appendicitis abscess presence: unspecified whether abscess present Appendicitis gangrene presence: unspecified whether gangrene present Appendicitis perforation presence: unspecified whether perforation present Qualified Code(s): K35.30 - Acute appendicitis with localized peritonitis, without perforation or gangrene
[2020-04-20] MEDS: PIPERACILLIN/TAZOBACTAM 3.375 GM in DEXTROSE 5% 100 ML IV SCH ×3 (05:31→20:48)
[2020-04-20] MEDS: ONDANSETRON INJ 2 MG/ML 2 ML VIAL IV PRN (05:32)
[2020-04-20] MEDS ORDERED: MELATONIN 3 MG TAB PO PRN (06:18)
[2020-04-20 07:14] LABS: Creatinine Clr Calc Pharmacy 84.8 ml/min; Est GFR (African American) 116.3; Est GFR (Non-African American) 100.3
[2020-04-20] MEDS ORDERED: bisacodyL 10 MG SUPP PR STA (07:55)
--- NOTE | 2020-04-20 07:59 | Hospitalist Progress Note ---
Date of Service April 20, 2020 Assessment & Plan (1) Acute appendicitis: -Operation Date: 04/15/20 s/p Laparoscopic, converted to open, Appendectomy and bowel resection -Post-Op Diagnosis: Acute perforated appendicitis,phlegmon of cecum -Pathology of APPENDIX from APPENDECTOMY is NEGATIVE FOR DYSPLASIA AND MALIGNANCY. Pathology from COLON AND SMALL BOWEL, CECUM AND TERMINAL ILEUM, REMOVAL: COLON AND ILEUM WITH PROMINENT SEROSITIS AND SCATTERED ACTIVE INFLAMMATION, NEGATIVE FOR DYSPLASIA AND MALIGNANCY -currently on IV Zosyn, blood cultures from 04/16/2020 are negative, trend the WBC -on clear liquid diet, suppository to help with bowel movements -prn anti-emetics and minimize narcotics to help with bowel movements -IRAIDA drain management as per general surgery Hypertension -may be be related to pain and hospital setting -Pt said that she tried anti-hypertensives in the past, but could not tolerate them due to low BP -currently on lisinopril 2.5 m daily while inpatient, systolic blood pressure in the 140s Hypothyroidism -Continue Levothyroxine DVT prophylaxis: SCD, patient denies problems with ambulation while inpatient Code Status Full code Admission and Anticipated Discharge Date Admission Date: April 16, 2020 Subjective Patient not in distress. she feels that previous abdomen discomforts are improving. she reports passing the gas with minimal bowel movement since Saturday. Hospitalist ordered Dulcolax suppository. Patient currently with IV Zosyn running. no chest pain, no shortness of breath, she has been afebrile and denies feeling subjective fever. no dizziness. no vomiting. reports some nausea Review of Systems Review of Systems: All systems reviewed & are unremarkable except as noted in Subjective Physical Exam Constitutional: WD/WN, vitals as above Eyes: PERRL, conjunctivae normal, anicteric sclerae EOM intact bilaterally ENMT: external ear and nose normal, oropharynx normal Neck: trachea midline, no thyromegaly normal visual inspection Respiratory: normal respiratory effort, lungs clear to auscultation Cardiovascular: Rate/Rhythm: regular rate Gastrointestinal (Abdomen): IRAIDA drain present, abdomen guero Musculoskeletal: Head/Neck/Chest: normocephalic Neurologic: PERRL, EOMI, accommodation nl, no face palsy, no dysarthria C N's II-XI intact bilaterally Psychiatric: A+Ox3, euthymic affect Results & Data Results & Data ([facility]) Vital Signs (Past 12 Hours) Vital Signs Temp Pulse Resp BP Pulse Ox 04/20/20 07:36 36.7 C 89 18 145/85 H 95 04/19/20 23:29 36.8 C 89 14 150/87 H 94 (1) Acute appendicitis Acute appendicitis type: with localized peritonitis Appendicitis abscess presence: unspecified whether abscess present Appendicitis gangrene presence: unspecified whether gangrene present Appendicitis perforation presence: unspecified whether perforation present Qualified Code(s): K35.30 - Acute appendicitis with localized peritonitis, without perforation or gangrene
--- NOTE | 2020-04-20 08:00 | Surgery Progress Note ---
Date of Service April 20, 2020 Assessment & Plan (1) Acute appendicitis: Postoperative day #5 status post ruptured appendicitis Peristalsis is returning slowly but has not completely returned Think we can advance to a full liquid diet as she is passing flatus and had a bowel movement We will repeat suppository Encouraged ambulation Subjective Postoperative day #5 status post appendectomy for perforated appendicitis Has some nausea intermittently Tolerated clear liquids however Is passing flatus Had small bowel movement after suppository yesterday Was ambulating in the hallways IRAIDA had 45 cc out yesterday and 80 cc last shift with serosanguineous fluid Physical Exam Gastrointestinal (Abdomen): Inspection/Auscultation: + abdomen distended (Less today) Percussion/Palpation: + abdomen tender (Incisional only) and abdomen soft Bowel sounds are present but decreased Results & Data Vital Signs (Past 12 Hours) Vital Signs Temp Pulse Resp BP Pulse Ox 04/20/20 07:36 36.7 C 89 18 145/85 H 95 04/19/20 23:29 36.8 C 89 14 150/87 H 94 (1) Acute appendicitis Acute appendicitis type: with localized peritonitis Appendicitis abscess presence: unspecified whether abscess present Appendicitis gangrene presence: unspecified whether gangrene present Appendicitis perforation presence: unspecified whether perforation present Qualified Code(s): K35.30 - Acute appendicitis with localized peritonitis, without perforation or gangrene
[2020-04-20] MEDS ORDERED: bisacodyL 10 MG SUPP PR ONE (08:03)
[2020-04-20] MEDS: LEVOTHYROXINE SODIUM 50 MCG TABLET PO SCH (09:27)
[2020-04-20] MEDS: LACTOBACILLUS ACIDOPHILUS (FLORANEX) TAB PO SCH (09:27)
[2020-04-20] MEDS ORDERED: ZOLPIDEM TARTRATE 5 MG TAB PO PRN (18:43)
[2020-04-20] MEDS: KETOROLAC 30 MG/ML VIAL IV PRN (18:55)
[2020-04-21] MEDS: ACETAMINOPHEN 1000 MG/100 ML IV IV PRN ×2 (04:28→19:07)
[2020-04-21] MEDS: PIPERACILLIN/TAZOBACTAM 3.375 GM in DEXTROSE 5% 100 ML IV SCH ×3 (04:57→20:13)
[2020-04-21] MEDS: LEVOTHYROXINE SODIUM 50 MCG TABLET PO SCH (06:18)
--- NOTE | 2020-04-21 07:36 | Surgery Progress Note ---
Date of Service April 21, 2020 Assessment & Plan (1) Acute appendicitis: Postoperative day 7 status post open appendectomy. Peristalsis is now returning nicely Can advance to low fiber diet If progress continues plan for discharge tomorrow Subjective Postoperative day #6 status post laparoscopic converted to open appendectomy Has had 2 bowel movements now Abdomen is less pain Ambulated in halls yesterday Tolerated full liquid diet without nausea and vomiting Ren had 180 cc out yesterday and 70 cc out last shift all appearing serosanguineous Physical Exam Gastrointestinal (Abdomen): Inspection/Auscultation: normal bowel sounds; abdomen not distended Percussion/Palpation: + abdomen tender (Incisional only) and abdomen soft Results & Data Vital Signs (Past 12 Hours) Vital Signs Temp Pulse Resp BP BP Pulse Ox 04/20/20 23:23 151/81 H 04/20/20 23:21 36.8 C 81 14 162/84 H 96 (1) Acute appendicitis Acute appendicitis type: with localized peritonitis Appendicitis abscess presence: unspecified whether abscess present Appendicitis gangrene presence: unspecified whether gangrene present Appendicitis perforation presence: unspecified whether perforation present Qualified Code(s): K35.30 - Acute appendicitis with localized peritonitis, without perforation or gangrene
[2020-04-21] MEDS: KETOROLAC 30 MG/ML VIAL IV PRN (07:50)
--- NOTE | 2020-04-21 08:10 | Hospitalist Progress Note ---
Date of Service April 21, 2020 Assessment & Plan (1) Acute appendicitis: -Operation Date: 04/15/20 s/p Laparoscopic, converted to open, Appendectomy and bowel resection -Post-Op Diagnosis: Acute perforated appendicitis,phlegmon of cecum -Pathology of APPENDIX from APPENDECTOMY is NEGATIVE FOR DYSPLASIA AND MALIGNANCY. Pathology from COLON AND SMALL BOWEL, CECUM AND TERMINAL ILEUM, REMOVAL: COLON AND ILEUM WITH PROMINENT SEROSITIS AND SCATTERED ACTIVE INFLAMMATION, NEGATIVE FOR DYSPLASIA AND MALIGNANCY -currently on IV Zosyn, blood cultures from 04/16/2020 are negative, trend the WBC -on clear liquid diet -suppository on 04/20/2020 helped promote bowel movements -prn anti-emetics and minimize narcotics to help with bowel movements (patient generally tries to avoid the percocet pain medication for abdomen pain) -IRAIDA drain management as per general surgery Hypertension -may be be related to pain and hospital setting -Pt said that she tried anti-hypertensives in the past, but could not tolerate them due to low BP - systolic blood pressure in the 140s to 150s recently while in hospital, start amlodipine 5 mg daily for now in place of recent trial of low dose lisinopril Hypothyroidism -Continue Levothyroxine DVT prophylaxis: SCD, patient denies problems with ambulation while inpatient Code Status Full code Admission and Anticipated Discharge Date Admission Date: April 16, 2020 Subjective Patient reports she made bowel movements after suppository yesterday. She reported multiple bowel movements. She stil has some abdomen pain. but subjectively feels less pain and less distended today. denies vomiting. no headache. no dizziness. no chest pain. no shortness of breath. IV Zosyn running at bedside Review of Systems Review of Systems: All systems reviewed & are unremarkable except as noted in Subjective Physical Exam Constitutional: WD/WN, vitals as above Eyes: PERRL, conjunctivae normal, anicteric sclerae EOM intact bilaterally ENMT: external ear and nose normal, oropharynx normal Neck: trachea midline, no thyromegaly normal visual inspection Respiratory: normal respiratory effort, lungs clear to auscultation Cardiovascular: Rate/Rhythm: regular rate Gastrointestinal (Abdomen): abdomen is soft and bowel sound present Musculoskeletal: Head/Neck/Chest: normocephalic Neurologic: PERRL, EOMI, accommodation nl, no face palsy, no dysarthria CN's II-XI intact bilaterally Psychiatric: A+Ox3, euthymic affect Results & Data Results & Data ([facility]) Vital Signs (Past 12 Hours) Vital Signs Temp Pulse Resp BP BP Pulse Ox 04/20/20 23:23 151/81 H 04/20/20 23:21 36.8 C 81 14 162/84 H 96 (1) Acute appendicitis Acute appendicitis type: with localized peritonitis Appendicitis abscess presence: unspecified whether abscess present Appendicitis gangrene presence: unspecified whether gangrene present Appendicitis perforation presence: unspecified whether perforation present Qualified Code(s): K35.30 - Acute appendicitis with localized peritonitis, without perforation or gangrene
[2020-04-21 08:20] LABS: Basophils # (auto) 0.04 K/uL (0-0.2); Basophils % (auto) 0.4 %; Eosinophils # (auto) 0.48 K/uL (0-0.5); Eosinophils % (auto) 5.3 %; Hematocrit (blood only) 34.9 % (37-47); Hemoglobin 11.5 g/dL (12.0-16.0); Immature Granulocytes # (auto) 0.17 K/uL (0.00-0.02); Immature Granulocytes % (auto) 1.9 %; Lymphocytes # (auto) 1.39 K/uL (1.2-3.4); Lymphocytes % (auto) 15.3 %; Mean Corpuscular Hemoglobin 29.5 pg (25-34); Mean Corpuscular Volume 89.5 fL (80-100); Monocytes # (auto) 1.01 K/uL (0.11-0.59); Monocytes % (auto) 11.1 %; Neutrophils # (auto) 5.97 K/uL (1.4-6.5); Platelet Count 568 K/uL (130-400); RDW Coefficient of Variation 12.6 % (11.5-14.5); White Blood Count 9.06 K/uL (4.8-10.8)
[2020-04-21 08:52] LABS: Albumin Level 2.2 gm/dl (3.4-5.0); BUN Creatinine Ratio 9.2 (10-20); Calcium 8.1 mg/dl (8.5-10.1); Creatinine Clr Calc Pharmacy 86.4 ml/min; Potassium 3.1 mmol/L (3.5-5.1)
[2020-04-21 08:54] LABS: Albumin Globulin Ratio 0.6 (0.9-2); Bilirubin,Total 0.3 mg/dl (0.2-1); Globulin 3.4 gm/dl (2.5-4.0); Total Protein 5.6 gm/dl (6.4-8.2)
[2020-04-21] MEDS ORDERED: POTASSIUM CHLORIDE 20 MEQ TABCR PO ONE (09:45)
[2020-04-21] MEDS: AMLODIPINE BESYLATE 5 MG TAB PO SCH (09:57)
[2020-04-21] MEDS: LACTOBACILLUS ACIDOPHILUS (FLORANEX) TAB PO SCH (09:58)
[2020-04-21] MEDS: POTASSIUM CHLORIDE / WTR 10 MEQ/100 ML PLCT IV SCH ×2 (09:58→10:12)
[2020-04-22] MEDS ORDERED: MELATONIN 3 MG TAB PO PRN (00:27)
[2020-04-22] MEDS: ACETAMINOPHEN 1000 MG/100 ML IV IV PRN (06:01)
[2020-04-22] MEDS: LEVOTHYROXINE SODIUM 50 MCG TABLET PO SCH (06:02)
[2020-04-22] MEDS: PIPERACILLIN/TAZOBACTAM 3.375 GM in DEXTROSE 5% 100 ML IV SCH (06:23)
[2020-04-22 06:59] LABS: Basophils # (auto) 0.08 K/uL (0-0.2); Basophils % (auto) 0.8 %; Eosinophils % (auto) 6.3 %; Hematocrit (blood only) 35.5 % (37-47); Hemoglobin 11.8 g/dL (12.0-16.0); Immature Granulocytes % (auto) 2.1 %; Lymphocytes # (auto) 1.57 K/uL (1.2-3.4); Lymphocytes % (auto) 16.4 %; Mean Corpuscular Hemoglobin 29.5 pg (25-34); Mean Corpuscular Hgb Conc 33.2 g/dL (32-36); Mean Corpuscular Volume 88.8 fL (80-100); Mean Platelet Volume 8.2 fL (7.4-10.4); Monocytes % (auto) 11.5 %; Neutrophils # (auto) 6.02 K/uL (1.4-6.5); Neutrophils % (auto) 62.9 %; Platelet Count 621 K/uL (130-400); RDW Coefficient of Variation 12.7 % (11.5-14.5); RDW Standard Deviation 41.3 fL (36.4-46.3); White Blood Count 9.57 K/uL (4.8-10.8)
[2020-04-22 07:28] LABS: BUN Creatinine Ratio 8.9 (10-20); Calcium 8.5 mg/dl (8.5-10.1); Creatinine Clr Calc Pharmacy 76.2 ml/min; Est GFR (African American) 112.3; Est GFR (Non-African American) 96.9; Potassium 3.4 mmol/L (3.5-5.1)
[2020-04-22] MEDS: KETOROLAC 30 MG/ML VIAL IV PRN (07:57)
--- NOTE | 2020-04-22 08:32 | Surgery Progress Note ---
Date of Service April 22, 2020 Assessment & Plan (1) Acute appendicitis: Postoperative day 7 status post open appendectomy. - AVSS - no leukocytosis - +bowel function - moderate gas pains Plan: Discharge home today discharge instructions reviewed, will remove drains prior to discharge May take gas-x at home 7 days of PO Augmentin PO Percocet prn pain f/u surgical office in 10 days for staple removal and postop check Dr. Becerra has seen and examined pt, agrees with above. Subjective passing gas and had bowel movement but gas builds up in evening and is really painful when it passes no n/v tolerated low fiber diet Physical Exam Constitutional: WD/WN, vitals as above no acute distress Gastrointestinal (Abdomen): Inspection/Auscultation: abdomen normal to inspection and + abdominal surgical drain present (serous); abdomen not distended Percussion/Palpation: + abdomen tender (at incision sites) and abdomen soft; no guarding and abdomen not rigid Skin: no rashes, warm and dry Psychiatric: Orientation: alert and oriented x 3 Results & Data Vital Signs (Past 12 Hours) Vital Signs Temp Pulse Resp BP Pulse Ox 04/22/20 04:30 36.6 C 82 18 142/91 H 96 04/21/20 23:01 36.8 C 87 16 137/79 95 Laboratory Results 04/22/20 04/22/20 04/21/20 Range/Units 06:18 06:18 08:09 WBC 9.57 (4.8-10.8) K/uL RBC 4.00 L (4.2-5.4) M/uL Hgb 11.8 L (12.0-16.0) g/dL Hct 35.5 L (37-47) % MCV 88.8 (80-100) fL MCH 29.5 (25-34) pg MCHC 33.2 (32-36) g/dL RDW Std Deviation 41.3 (36.4-46.3) fL RDW Coeff of [place] 12.7 (11.5-14.5) % Plt Count 621 H (130-400) K/uL MPV 8.2 (7.4-10.4) fL Immature Gran % (Auto) 2.1 % Neut % (Auto) 62.9 % Lymph % (Auto) 16.4 % [place] % (Auto) 11.5 % Eos % (Auto) 6.3 % Baso % (Auto) 0.8 % Neut # (Auto) 6.02 (1.4-6.5) K/uL Lymph # (Auto) 1.57 (1.2-3.4) K/uL [place] # (Auto) 1.10 H (0.11-0.59) K/uL Eos # (Auto) 0.60 H (0-0.5) K/uL Baso # (Auto) 0.08 (0-0.2) K/uL Immature Gran # (Auto) 0.20 H (0.00-0.02) K/uL Sodium 139 139 (136-145) mmol/L Potassium 3.4 L 3.1 L (3.5-5.1) mmol/L Chloride 105 103 (98-107) mmol/L Carbon Dioxide 27 28 (21-32) mmol/L Anion Gap 7.0 9.0 (3-11) BUN 5 L 5 L (7-18) mg/dl Creatinine 0.59 L 0.52 L (0.6-1.2) mg/dl Est Cr Clr Drug Dosing 76.2 86.4 ml/min Est GFR ( Amer) 112.3 117.0 Est GFR (Non-Af Amer) 96.9 101.0 BUN/Creatinine Ratio 8.9 L 9.2 L (10-20) Glucose 111 H 112 H (70-99) mg/dl Calcium 8.5 8.1 L (8.5-10.1) mg/dl Total Bilirubin 0.3 (0.2-1) mg/dl AST 21 (15-37) U/L ALT 25 (12-78) U/L Alkaline Phosphatase 113 (45-117) U/L Total Protein 5.6 L (6.4-8.2) gm/dl Albumin 2.2 L (3.4-5.0) gm/dl Globulin 3.4 (2.5-4.0) gm/dl Albumin/Globulin Ratio 0.6 L (0.9-2) Diagnostic Findings PATHOLOGY: FINAL DIAGNOSIS A. APPENDIX, APPENDECTOMY: - ACUTE APPENDICITIS WITH PERFORATION - NEGATIVE FOR DYSPLASIA AND MALIGNANCY B. COLON AND SMALL BOWEL, CECUM AND TERMINAL ILEUM, REMOVAL: - COLON AND ILEUM WITH PROMINENT SEROSITIS AND SCATTERED ACTIVE INFLAMMATION - NEGATIVE FOR DYSPLASIA AND MALIGNANCY (1) Acute appendicitis Acute appendicitis type: with localized peritonitis Appendicitis abscess presence: unspecified whether abscess present Appendicitis gangrene presence: unspecified whether gangrene present Appendicitis perforation presence: unspecified whether perforation present Qualified Code(s): K35.30 - Acute appendicitis with localized peritonitis, without perforation or gangrene
--- NOTE | 2020-04-22 08:37 | Hospitalist Progress Note ---
Date of Service April 22, 2020 Assessment & Plan (1) Acute appendicitis: -Operation Date: 04/15/20 s/p Laparoscopic, converted to open, Appendectomy and bowel resection -Post-Op Diagnosis: Acute perforated appendicitis,phlegmon of cecum -Pathology of APPENDIX from APPENDECTOMY is NEGATIVE FOR DYSPLASIA AND MALIGNANCY. Pathology from COLON AND SMALL BOWEL, CECUM AND TERMINAL ILEUM, REMOVAL: COLON AND ILEUM WITH PROMINENT SEROSITIS AND SCATTERED ACTIVE INFLAMMATION, NEGATIVE FOR DYSPLASIA AND MALIGNANCY -currently on IV Zosyn, blood cultures from 04/16/2020 are negative, trend the WBC -on clear liquid diet -suppository on 04/20/2020 helped promote bowel movements -prn anti-emetics and minimize narcotics to help with bowel movements (patient generally tries to avoid the percocet pain medication for abdomen pain) -IRAIDA drain management as per general surgery -04/22/2020: Patient seen and examined in AM. no acute distress. Patient is under the impression that general surgery will be planning on discharging her soon. would recommend that when general surgery discharges the patient that, patient be transitioned from IV Zosyn to oral ciprofloxacin 500 mg BID and metronidazole 500 mg q8 hours until April 29, 2020 so patient finishes a total antibiotic course of 2 weeks. Hypertension -may be be related to pain and hospital setting -Pt said that she tried anti-hypertensives in the past, but could not tolerate them due to low BP - systolic blood pressure in the 140s to 150s recently while in hospital, started amlodipine 5 mg daily for now in place of recent trial of low dose lisinopril -recommend amlodipine 5 mg daily on discharge. patient's preferred pharmacy is [facility] [address] [place] [address] primary care doctor Markus Matthews after hospital discharge on SaturdayApril 27 at 8:40 AM Hypothyroidism -Continue Levothyroxine DVT prophylaxis: SCD, patient denies problems with ambulation while inpatient Code Status Full code Admission and Anticipated Discharge Date Admission Date: April 16, 2020 Subjective Patient seen and examined in AM. no acute distress. Patient is under the impression that general surgery will be planning on discharging her soon. no nausea. no vomiting. no headache. no dizziness. no chest pain. no shortness of breath Review of Systems Review of Systems: All systems reviewed & are unremarkable except as noted in Subjective Physical Exam Constitutional: WD/WN, vitals as above Eyes: PERRL, conjunctivae normal, anicteric sclerae EOM intact bilaterally ENMT: external ear and nose normal, oropharynx normal Neck: trachea midline, no thyromegaly normal visual inspection Respiratory: normal respiratory effort, lungs clear to auscultation Cardiovascular: Rate/Rhythm: regular rate Gastrointestinal (Abdomen): soft Musculoskeletal: Head/Neck/Chest: normocephalic Neurologic: PERRL, EOMI, accommodation nl, no face palsy, no dysarthria CN's II-XI intact bilaterally Psychiatric: A+Ox3, euthymic affect Results & Data Results & Data ([facility]) Vital Signs (Past 12 Hours) Vital Signs Temp Pulse Resp BP Pulse Ox 04/22/20 08:29 36.7 C 78 18 160/87 H 95 04/22/20 04:30 36.6 C 82 18 142/91 H 96 04/21/20 23:01 36.8 C 87 16 137/79 95 (1) Acute appendicitis Acute appendicitis type: with localized peritonitis Appendicitis abscess presence: unspecified whether abscess present Appendicitis gangrene presence: unspecified whether gangrene present Appendicitis perforation presence: unspecified whether perforation present Qualified Code(s): K35.30 - Acute appendicitis with localized peritonitis, without perforation or gangrene
[2020-04-22] MEDS ORDERED: POTASSIUM CHLORIDE 20 MEQ TABCR PO STA (08:38)
[2020-04-22] MEDS: AMLODIPINE BESYLATE 5 MG TAB PO SCH (09:27)
[2020-04-22] MEDS: LACTOBACILLUS ACIDOPHILUS (FLORANEX) TAB PO SCH (09:27)
--- NOTE | 2020-05-05 11:52 | Discharge Summary ---
Date of Service May 05, 2020 Admission HPI Per Admitting Provider This is a 64-year-old female who presented to the emergency room with a complaint of abdominal pain that is now in the right lower quadrant. It began 6 days ago. It began generally on the right side. It was a dull ache. It would come and go and at one point resolved however it returned and yesterday became very sharp. It was then localized to the right lower quadrant. Yesterday she developed nausea and had an episode of vomiting. She has not had fever. She has not had a change in her bowel habits. There is no melena or hematochezia. She denies dysuria and hematuria. The pain is exacerbated by motion. She has never had pain like this before. Principal Diagnosis acute ruptured appendicitis Discharge Data Allergies Allergy/AdvReac Type Severity Reaction Status Date / Time No Known Allergies Allergy Mild NONE Unverified 06/ 10:39 Consultations 04/15/20 10:50 ED Decision to Admit Stat 04/16/ 04:32 Consult Hospitalist Routine Procedures Performed Operation Date: 04/15/20 15:20 Actual Procedures p Converted to open, Appendectomy (Not Applicable) - Regino Becerra MD s Bowel Resection(Not Applicable) - Regino Becerra MD s Laparoscopic (Not Applicable) - Regino Becerra MD Ordered Studies 04/15/20 09:45 CT abd pelvis IV con only Stat Hospital Course (1) Acute appendicitis: Patient was admitted from ED and taken to operating room for laparoscopic appendectomy possible open by Dr. Becerra. Patient unfortunately found to have perforated appendicitis and converted to open appendectomy. Patient was started on IV fluids, IV Zosyn, IV pain medication, kept NPO, and SCDs for DVT prophylaxis. Diet was advanced to clear liquids on POD # 0. Medicine was consulted given hypertension. POD # 1, diet advanced to full liquids, no return of bowel function yet. Through the next two days patient felt bloated with no return of bowel function. Diet kept on clear liquids. IRAIDA drain was placed in OR and kept to bulb suction throughout her stay with serosanguineous output. on POD # 4 , narcotic pain medication was limited and IV Tylenol and Toradol started for pain management to machine long goods helper in increasing GI motility. She was also given suppository to machine long goods helper in passing some gas. activity increased. POD # 5 diet advanced to full liquids as she had bowel movement and passing flatus. POD # 6 diet advanced to low fiber. Medicine was continuing to manage her hypertension. POD # 7, patient was discharge home. She was sent home with PO Amlodipine given persistent hypertension in postop setting and advised to follow-up with PCP. She was also discharged home on PO Augmentin for 7 days. Total Time Total Time Spent Total Time Spent (In Minutes): 30 Total Time Includes: Examination of the Patient, Discharge Planning, Medication Reconciliation and Other (removal of drains) Discharge Plan Discharge Items Patient Disposition: Home - Self-Care Reason For Visit: ACUTE PERFORATED APPENDICITIS Discharge Diagnosis: same Activity: Per Instructions section Non-emergency contact: Surgeon Call non-emergency contact if: your pain is not controlled, your pain is worsening, your pain is concerning for you, you have a fever, your temperature is above 101, your wound has increased redness, your wound has increased drainage and your wound pain has increased Follow-up/Referrals: Markus Matthews, DO [Primary Care Provider] - Diet: Low Fiber Diet Comment: low fiber diet for 2-4 weeks and than advance as tolerated Addtl Attending Provider Instructions: Post-Surgical ~Discharge Instructions Activity Recommendations: - lifting limitation: (10 pounds for 6 weeks), - exercise/sex/sports limit: (nonstrenuous for 6 weeks and cleared by surgeon), - driving or machine use limit: (none for 1 week or until you are pain free), - Shower/bathe limit: (may shower) Diet: - Low fiber diet for 2-4 weeks SPECIAL CARE INSTRUCTIONS: - May shower. Let water run over area and pat dry. - Cover drain site and incision with small dressing and change daily or as ne eded to keep clean and dry. - Surgical guero will be removed in office. - Call the surgeon's office with any questions or concerns - - (ex. temperature higher than 101 degrees F, excessive bleeding or pain). MEDICATIONS: - Resume previous medications unless instructed otherwise by your surgeon. - May alternate Tylenol and Ibuprofen as needed for mild pain - Ibuprofen 600 mg every 6 hours as needed (take with food) - Tylenol 650 mg every 6 hours as needed - Percocet 1 every 4 hours, as needed for severe pain - Recommend taking stool softener daily while taking narcotic pain medication or if you feel constipated - You can take OTC Gas-x for gas relief as needed - Take entire course of oral antibiotic (Augmentin) as prescribed (7 days) FOLLOW UP VISIT: - If not already scheduled, please call the office to schedule a one week follow-up appointment. Office number [facility] Provider Instructions: Hypertension -may be be related to pain and hospital setting -Pt said that she tried anti-hypertensives in the past, but could not tolerate them due to low BP - systolic blood pressure in the 140s to 150s recently while in hospital, started amlodipine 5 mg daily for now in place of recent trial of low dose lisinopril -recommend amlodipine 5 mg daily on discharge. patient's preferred pharmacy is [facility] [address] [place] [address] primary care doctor Markus Matthews after hospital discharge on SaturdayApril 27 at 8:40 AM Pending Studies at Discharge: No Stand-Alone Forms: My [facility], Opioid Pain Management, Smoking Cessation Medications and DC Order Prescriptions: New amoxicillin-pot clavulanate [Augmentin] 875-125 mg tablet 1 tab PO BID Qty: 14 RF: 0 amlodipine [Norvasc] 5 mg Tablet 5 mg PO QAM Qty: 30 RF: 0 oxycodone-acetaminophen [Percocet] 5-325 mg Tablet 1 tab PO Q4H PRN (Reason: pain) Qty: 5 RF: 0 Continued fluticasone propion-salmeterol [Wixela Inhub] 250-50 mcg/dose blister with device 1 inh INHALATION BID RF: 0 ascorbic acid (vitamin C) [Vitamin C] 1,000 mg Tablet 1,000 mg PO QAM RF: 0 levothyroxine 50 mcg tablet 50 mcg PO QAM RF: 0 gabapentin 300 mg capsule 300 mg PO HS RF: 0 magnesium 250 mg Tablet 250 mg PO QAM RF: 0 albuterol sulfate [Ventolin HFA] 90 mcg/actuation HFA aerosol inhaler 2 puff INHALATION Q4H PRN (Reason: Wheezing) RF: 0 Probiotic 3 billion cell Capsule 3,000 mmu cells PO QAM RF: 0 [place]-3 350 mg-235 mg- 90 mg-597 mg Capsule,Delayed Release(Dr/Ec) 2 cap PO QAM RF: 0 Discharge Orders: Discharge Order (Routine); Ordered 04/22/20 Ordered By: Yumiko Abreu/Other Patient Handouts: Appendectomy Admission Data Admit Date/Time: 04/16/20 00:50 Attending Provider: Regino Becerra Admit Provider: Regino Becerra Primary Care Provider: Markus Matthews Other Providers: Regino Becerra ; Jan Weinstein Other Interventions: Discharge Summary Assessment (RN) Last Done: 04/22/20 10:48 DC Date/Time DO NOT enter until pt leaves facility: 04/22/20 11:48
== END 2020-04-22 11:48 | disposition home or self-care (01) | DRG 331 ==
LOC: ED 09:21 → OR 13:07 → 3N 04-16 00:50